=== PATIENT | female | born 1940 | race Caucasian/White ===

== ENCOUNTER 2019-11-26 14:39 | IRF | payer MEDICARE, SELFPAY ==
[2019-11-26 14:45] VITALS: BP 129/56; PULSE 74; RESP 20; TEMP 37.1; O2SAT 98; BMI 27.5
--- NOTE | 2019-11-26 15:16 | ADMGEN ---
This patient, Kirstin Holman, was admitted to [facility] Room 224-01. Patient/family oriented to hospital policies and general routines including ID bracelet, bed and alarms, visiting hours, pain management, procedures, bathroom and other care routines, personal items, smoking policy, room service/diet, and visiting hours. Valuables list has been completed. Information on how to activate the Rapid Response Team has been discussed. Patient/Family are encouraged to report perceived risks to care and to ask questions if they do not understand what they are told or what they should do.
[2019-11-26 15:57] VITALS: BMI 27.5
[2019-11-26 16:54] LABS: Glucose Point of Care 140 (65-105)
[2019-11-26] MEDS: DOCUSATE SODIUM 100 MG CAPSULE PO (17:52)
[2019-11-26] MEDS: metFORMIN HCL 500 MG TABLET PO (17:52)
[2019-11-26] MEDS: ATORVASTATIN 40 MG TABLET 80 MG PO ×2 (20:03→20:04)
[2019-11-26 21:37] VITALS: BP 136/56; PULSE 84; RESP 16; TEMP 36.8; O2SAT 100
[2019-11-27 05:27] LABS: Basophils Absolute Auto 0.1 K/mm3 (0.0-0.1); Basophils Percent Auto 0.5 % (0.2-1.2); Eosinophils Absolute Auto 0.3 K/mm3 (0-0.3); Eosinophils Percent Auto 2.9 % (0-4.4); Hematocrit 34.3 % (37.0-47.0); Hemoglobin 11.5 g/dL (12.0-15.0); Immature Granulocyte Absolute 0.07 K/mm3 (0.00-0.031); Immature Granulocyte Percent A 0.6 % (0-0.5); Lymphocytes Percent Auto 25.9 % (18.3-44.2); Mean Corpuscular HGB Conc 33.5 g/dl (32-36); Mean Corpuscular Volume 92.5 fl (80-100); Mean Platelet Volume 11.2 fl (7.4-10.4); Monocytes Absolute Auto 0.9 K/mm3 (0.1-0.6); Neutrophils Absolute Auto 7.2 K/mm3 (1.3-6.7); Neutrophils Percent Auto 62.1 % (45.5-73.1); Platelet Count Result 326 k/mm3 (150-375); Red Blood Count 3.71 M/mm3 (4.2-5.4); Red Cell Distribution Width 12.3 % (11.5-14.5); White Blood Count 11.6 K/mm3 (4.5-10.0)
[2019-11-27 05:39] LABS: Blood Urea Nitrogen 21 mg/dL (7-17); Calcium 8.7 mg/dL (8.4-10.2); Carbon Dioxide 27 mmol/L (22-30); Chloride 102 mmol/L (98-107); Cholesterol 149 mg/dL (0-200); Estimated CRCL calculation 58 ml/min; Estimated Glomerular Filt Rate > 60; Glucose 143 mg/dL (65-105); HDL Direct 37 mg/dL; Potassium 3.9 mmol/L (3.4-5.0); Sodium 135 mmol/L (137-145); Triglycerides 91 mg/dL (<150)
[2019-11-27 05:41] VITALS: BP 142/58; PULSE 74; RESP 16; TEMP 36.8; O2SAT 100
[2019-11-27 05:41] LABS: Hemoglobin A1C 6.7 % (<5.7)
[2019-11-27 05:50] LABS: LDL Cholesterol Direct 87 mg/dL
[2019-11-27 06:03] LABS: Glucose Point of Care 141 (65-105)
[2019-11-27 09:27] VITALS: PULSE 74
[2019-11-27] MEDS: atenoloL 50 MG TABLET PO (09:27)
[2019-11-27] MEDS: metFORMIN HCL 500 MG TABLET PO ×2 (09:27→17:43)
[2019-11-27] MEDS: ASPIRIN 325 MG TABLET PO (09:27)
[2019-11-27] MEDS: DOCUSATE SODIUM 100 MG CAPSULE PO ×2 (09:28→17:43)
[2019-11-27] MEDS: FLUTICASONE PROPIONATE 0.05% NA SPR 16 GM BTL (*BKC) 1 SPRAY NASAL (09:28)
[2019-11-27] MEDS: hydroCHLOROthiazide 25 MG TABLET PO (09:28)
[2019-11-27] MEDS: LOSARTAN POTASSIUM 50 MG TABLET PO (09:28)
[2019-11-27] MEDS: THERAPEUTIC MULTIVITAMINS/MINERALS TAB (*BKC) 1 TABLET PO (09:29)
[2019-11-27] MEDS: LORATADINE 10 MG TABLET PO (09:29)
--- NOTE | 2019-11-27 12:30 | WPDREHABHP ---
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 The patient is a 79-year-old right-handed woman with a past medical history of hypertension, hyperlipidemia, and diabetes mellitus who presented to [facility] and November 19, 2019 after suffering a fall. She hit her head on the toilet. There was no loss of consciousness. The patient noted that her right arm and leg were weak when she tried to get up. Initial NIHSS was 4. CT of the head showed no acute intracranial process. She was given tPA and transferred to [facility] for further care. CTA of the head and neck showed no LV 0. Patient presented to [facility] with aphasia confusion right arm and right leg weakness. An MRI showed acute infarct of the posterior left frontal lobe and the left LEONIDES A3 segment territory. Neurology was consulted and the patient was not continued on aspirin atorvastatin. Echocardiogram showed an ejection fraction of 62%. CT of the cervical spine showed degenerative joint disease but no fracture. Urinalysis was positive for urinary tract infection and she was placed on a ceftriaxone for 5 day course. On November 20, 2019 the patient's NIHSS score change from 7 to 15, Neurology responded. MRI showed no hemorrhage no new focal deficits people or week will blood glucose within normal limit and fell this decline was likely due to aphasia. Physical examination continues to reveal moderately severe right-sided hemiparesis right-sided neglect right-sided visual field defect impaired balance decreased gross motor conclude decreased safety awareness and expressive aphasia which is not only expressive but also comprehensive. The patient was supposed to have been discharged on subcutaneous heparin for DVT prophylaxis The patient has not traveled outside the [place] in the past 21 days in the patient has not had close personal contact with anyone that has. The patient has not traveled to an area within the [facility] that is experiencing no transformation of the Coronavirus and has not had close personal contact with anyone that has. The patient does not have a fever. The patient is not experiencing any lower respiratory illness symptoms. Therapy was initiated at the acute care facility and the patient transferred to us from [facility] on November 26, 2019 on FALLS OR SURGERIES: The patient has had no major surgeries in the 100 days prior to admission. They had falls in the past year. They had falls with injury in the past year. PAST MEDICAL HISTORY: diabetes mellitus hypercholesterolemia and hypertension PAST SURGICAL HISTORY: appendectomy bunionectomy and D&C SOCIAL HISTORY: patient lives with her in a 1 level home with 2 steps to enter and there is a handrail. The patient has a tub shower with grab bars and the shower chair. There is standard height toilet with synchrony air by. She was independent with ADLs and IADLs less and ambulation with no assistive device. Her spouse is home with her 20/01 and she does have family assistance available. The patient reported no other but falls beside the 1 prior to admission. She has had no major surgery in the past and days never smoker no alcohol or drug abuse FAMILY HISTORY: close family relatives have had hypertension diabetes mellitus and probably heart conditions PRIOR LEVEL OF FUNCTION: Eating was INDEPENDENT Oral Care was INDEPENDENT Toileting Hygiene was INDEPENDENT Shower/Bathing was INDEPENDENT Upper Body Dressing was INDEPENDENT Lower Body Dressing was INDEPENDENT Donning/[place] Footwear was INDEPENDENT Rolling
[2019-11-27 12:59] LABS: Glucose Point of Care 113 (65-105)
[2019-11-27 14:00] VITALS: BP 126/48; PULSE 81; RESP 17; TEMP 36.6; O2SAT 99
[2019-11-27 17:42] LABS: Glucose Point of Care 132 (65-105)
[2019-11-27] MEDS: HEPARIN SODIUM 5,000 UNITS/ML VIAL 5000 UNITS SUB-Q (19:37)
[2019-11-27 20:00] VITALS: BP 124/89; PULSE 60; RESP 16; TEMP 36.6; O2SAT 93
[2019-11-27 21:46] LABS: Glucose Point of Care 108 (65-105)
[2019-11-28] MEDS: HEPARIN SODIUM 5,000 UNITS/ML VIAL 5000 UNITS SUB-Q ×3 (05:42→19:40)
[2019-11-28 06:00] VITALS: BP 153/72; PULSE 86; RESP 20; TEMP 37.2; O2SAT 93
[2019-11-28 07:00] LABS: Glucose Point of Care 134 (65-105)
[2019-11-28 09:16] VITALS: PULSE 86
[2019-11-28] MEDS: metFORMIN HCL 500 MG TABLET PO ×2 (09:16→17:25)
[2019-11-28] MEDS: ASPIRIN 325 MG TABLET PO (09:16)
[2019-11-28] MEDS: THERAPEUTIC MULTIVITAMINS/MINERALS TAB (*BKC) 1 TABLET PO (09:16)
[2019-11-28] MEDS: hydroCHLOROthiazide 25 MG TABLET PO (09:16)
[2019-11-28] MEDS: DOCUSATE SODIUM 100 MG CAPSULE PO ×2 (09:16→17:25)
[2019-11-28] MEDS: atenoloL 50 MG TABLET PO (09:16)
[2019-11-28] MEDS: FLUTICASONE PROPIONATE 0.05% NA SPR 16 GM BTL (*BKC) 1 SPRAY NASAL (09:17)
[2019-11-28] MEDS: LOSARTAN POTASSIUM 50 MG TABLET PO (09:17)
[2019-11-28] MEDS: LORATADINE 10 MG TABLET PO (09:17)
[2019-11-28 12:50] LABS: Glucose Point of Care 114 (65-105)
[2019-11-28 14:00] VITALS: BP 128/53; PULSE 86; RESP 20; TEMP 36.9; O2SAT 96
--- NOTE | 2019-11-28 14:33 | PCPTNOTE ---
Patient family members ( Devin, daughter Tatianna) called this date wanting an update on patient about progress. Educated on stroke rehab and current goals set up for the patient and how her first few sessions have gone. Patient family members were asking about having a mental health counselor come in to help motivate patient due to visitor restrictions stating unsure at this time. Family mentioned Kirstin having a hard time working TV remote and was wondering if therapy could assist with teaching, notified OT staff. Family phone number is [phone] stated due to visitor restrictions would appreciate updates from nursing and/or therapy each week.
[2019-11-28 17:18] LABS: Glucose Point of Care 133 (65-105)
--- NOTE | 2019-11-28 18:19 | WPDNEURORHBP ---
Subjective Date/time seen: 11/28/19 18:19 Interval history: this 79-year-old woman is here with the left hemispheric stroke which has left her with the aphasia which is mixed and right-sided hemiparesis she is pleasant a cheerful is smiling with obvious is speech defect and both expressive and also comprehensive right-sided hemiparesis is stable as best I can see the patient is not any distress does not have any headache nausea vomiting chest pain shortness of breath fever chills or sore throat Review of Systems Review of Systems: All systems reviewed & are unremarkable except as noted in HPI and below Functional Status Transfers Ability Ability to Transfer In/Out of Chair: Maximum Assistance X 1 Exam Const: General: comfortable and no acute distress HENMT: General nose exam: Normal nares present Mouth: Yes moist mucous membranes Eyes: General: appearance normal, both eyes and all related structures Neck: Neck: supple and no JVD Resp: Effort & Inspection: normal respiratory effort Auscultation: clear to auscultation bilaterally Cardio: Rate: regular rate Rhythm: regular rhythm GI: GI Palp: Yes Soft to palpation Auscultation: normal bowel sounds Skin: General skin exam: normal color and no rashes or lesions noted Neuro: Other: patient is awake and alert partially oriented with aphasia and right-sided hemiparesis pleasant cheerful and smiled Extrem: General: normal to inspection Psych: Mental Status: mental status grossly normal Objective Data Vital Signs Vital Signs: Vital Signs - 24 hr 11/27/19 20:00 11/28/19 06:00 11/28/19 09:16 Temperature 36.6 C 37.2 C Pulse Rate 60 86 86 Respiratory Rate 16 20 Blood Pressure 124/89 153/72 H Pulse Oximetry 93 93 11/28/19 14:00 Temperature 36.9 C Pulse Rate 86 Respiratory Rate 20 Blood Pressure 128/53 L Pulse Oximetry 96 Intake/Output Intake/Output: Intake & Output 11/25/19 11/26/19 11/27/19 11/28/19 23:59 23:59 23:59 23:59 Intake Total 480 240 Balance 480 240 Meds/Results Medications: Active Medications Generic Name Dose Route Start Last Admin Trade Name Freq PRN Reason Stop Dose Admin Aspirin 325 mg 11/27/19 09:00 11/28/19 09:16 Aspirin PO 325 mg DAILY WALLACE Administration Atenolol 50 mg 11/27/19 09:00 11/28/19 09:16 Tenormin PO 50 mg DAILY WALLACE Administration Atorvastatin Calcium 80 mg 11/26/19 21:00 11/26/19 20:04 Lipitor PO 80 mg HS WALLACE Administration Calcium Carbonate 200 mg 11/27/19 00:17 Tums PO Q6H PRN Indigestion Cyclosporine 1 drop 11/26/19 21:00 11/28/19 09:18 Restasis EACH EYE 1 drop Q12HR WALLACE Administration Dextrose 12.5 gm 11/26/19 14:58 Dextrose 50% Syringe IV PUSH PRN PRN Hypoglycemia Protocol Docusate Sodium 100 mg 11/26/19 17:00 11/28/19 17:25 Colace Capsule PO 100 mg BID WALLACE Administration Fluticasone Propionate 1 spray 11/27/19 09:00 11/28/19 09:17 Flonase 0.05% Nasal [place] NASAL 1 spray DAILY WALLACE Administration Glucagon 1 mg 11/26/19 14:58 Glucagon For Inj IM PRN PRN Hypoglycemia Protocol Glucose 15 gm 11/26/19 14:58 Glutose 15 PO PRN PRN Hypoglycemia Protocol Heparin Sodium (Porcine) 5,000 units 11/27/19 22:00 11/28/19 17:18 Heparin Sodium SUB-Q 5,000 units Q8HR WALLACE Administration Hydrochlorothiazide 25 mg 11/27/19 09:00 11/28/19 09:16 Hydrochlorothiazide PO 25 mg DAILY WALLACE Administration Dextrose 1,000 mls @ 100 mls/hr 11/26/19 14:58 Dextrose 5% 1,000 Ml IVPB PRN PRN Hypoglycemia Protocol Loperamide HCl 2 mg 11/27/19 17:20 Loperamide Hcl PO Q4H PRN Diarrhea Loratadine 10 mg 11/27/19 09:00 11/28/19 09:17 Claritin PO 10 mg DAILY WALLACE Administration Losartan Potassium 50 mg 11/27/19 09:00 11/28/19 09:17 Cozaar PO 50 mg DAILY WALLACE Administration Metformin HCl 500 mg
[2019-11-28] MEDS: ATORVASTATIN 40 MG TABLET 80 MG PO (19:39)
[2019-11-28 21:44] LABS: Glucose Point of Care 115 (65-105)
[2019-11-28 21:51] VITALS: BP 132/53; PULSE 86; RESP 20; TEMP 37.1; O2SAT 95
[2019-11-29 06:00] VITALS: BP 114/87; PULSE 76; RESP 16; TEMP 36.9; O2SAT 94
[2019-11-29] MEDS: HEPARIN SODIUM 5,000 UNITS/ML VIAL 5000 UNITS SUB-Q ×3 (06:05→20:22)
[2019-11-29 06:49] LABS: Glucose Point of Care 128 (65-105)
[2019-11-29 08:53] VITALS: PULSE 76
[2019-11-29] MEDS: metFORMIN HCL 500 MG TABLET PO ×2 (08:53→17:27)
[2019-11-29] MEDS: DOCUSATE SODIUM 100 MG CAPSULE PO (08:53)
[2019-11-29] MEDS: ASPIRIN 325 MG TABLET PO (08:53)
[2019-11-29] MEDS: atenoloL 50 MG TABLET PO (08:53)
[2019-11-29] MEDS: hydroCHLOROthiazide 25 MG TABLET PO (08:54)
[2019-11-29] MEDS: LORATADINE 10 MG TABLET PO (08:54)
[2019-11-29] MEDS: LOSARTAN POTASSIUM 50 MG TABLET PO (08:54)
[2019-11-29] MEDS: THERAPEUTIC MULTIVITAMINS/MINERALS TAB (*BKC) 1 TABLET PO (08:54)
[2019-11-29] MEDS: FLUTICASONE PROPIONATE 0.05% NA SPR 16 GM BTL (*BKC) 1 SPRAY NASAL (08:54)
--- NOTE | 2019-11-29 10:22 | WPDNEURORHBP ---
Subjective Date/time seen: s/p left frontal lobe stroke with hypertension,DM, and [id number]/01/20 10:22 Review of Systems Review of Systems: All systems reviewed & are unremarkable except as noted in HPI and below Functional Status Transfers Ability Ability to Transfer In/Out of Chair: Total Assistance X 2 Exam Const: General: cooperative and comfortable HENMT: Head: normal to inspection General nose exam: No nasal discharge present Face and sinus: normal facial exam Mouth: Yes Normal oral and palatal mucosa present Eyes: General: appearance normal, both eyes and all related structures Neck: Neck: full ROM Resp: Auscultation: clear to auscultation bilaterally Cardio: Jugular venous distension: no JVD Palpation: normal PMI Rate: regular rate Rhythm: regular rhythm Peripheral pulses: Peripheral pulses 2+ throughout GI: Percussion: Yes normal to percussion Auscultation: normal bowel sounds Skin: General skin exam: no rashes or lesions noted Neuro: General: oriented to person Speech: Abnormal speech present (aphasic) Motor exam (neuro): Abnormal motor strength present (right hemiparetic) Psych: Appearance: grossly normal Affect: normal affect Attitude: cooperative Objective Data Vital Signs Vital Signs: Vital Signs - 24 hr 11/28/19 14:00 11/28/19 21:51 11/29/19 06:00 Temperature 36.9 C 37.1 C 36.9 C Pulse Rate 86 86 76 Respiratory Rate 20 20 16 Blood Pressure 128/53 L 132/53 L 114/87 Pulse Oximetry 96 95 94 11/29/19 08:53 Temperature Pulse Rate 76 Respiratory Rate Blood Pressure Pulse Oximetry Intake/Output Intake/Output: Intake & Output 11/26/19 11/27/19 11/28/19 11/29/19 23:59 23:59 23:59 23:59 Intake Total 480 480 0 Balance 480 480 0 Meds/Results Medications: Active Medications Generic Name Dose Route Start Last Admin Trade Name Freq PRN Reason Stop Dose Admin Aspirin 325 mg 11/27/19 09:00 11/29/19 08:53 Aspirin PO 325 mg DAILY WALLACE Administration Atenolol 50 mg 11/27/19 09:00 11/29/19 08:53 Tenormin PO 50 mg DAILY WALLACE Administration Atorvastatin Calcium 80 mg 11/26/19 21:00 11/28/19 19:39 Lipitor PO 80 mg HS WALLACE Administration Calcium Carbonate 200 mg 11/27/19 00:17 Tums PO Q6H PRN Indigestion Cyclosporine 1 drop 11/26/19 21:00 11/29/19 08:53 Restasis EACH EYE 1 drop Q12HR WALLACE Administration Dextrose 12.5 gm 11/26/19 14:58 Dextrose 50% Syringe IV PUSH PRN PRN Hypoglycemia Protocol Docusate Sodium 100 mg 11/26/19 17:00 11/29/19 08:53 Colace Capsule PO 100 mg BID WALLACE Administration Fluticasone Propionate 1 spray 11/27/19 09:00 11/29/19 08:54 Flonase 0.05% Nasal [place] NASAL 1 spray DAILY WALLACE Administration Glucagon 1 mg 11/26/19 14:58 Glucagon For Inj IM PRN PRN Hypoglycemia Protocol Glucose 15 gm 11/26/19 14:58 Glutose 15 PO PRN PRN Hypoglycemia Protocol Heparin Sodium (Porcine) 5,000 units 11/27/19 22:00 11/29/19 06:05 Heparin Sodium SUB-Q 5,000 units Q8HR WALLACE Administration Hydrochlorothiazide 25 mg 11/27/19 09:00 11/29/19 08:54 Hydrochlorothiazide PO 25 mg DAILY WALLACE Administration Dextrose 1,000 mls @ 100 mls/hr 11/26/19 14:58 Dextrose 5% 1,000 Ml IVPB PRN PRN Hypoglycemia Protocol Loperamide HCl 2 mg 11/27/19 17:20 Loperamide Hcl PO Q4H PRN Diarrhea Loratadine 10 mg 11/27/19 09:00 11/29/19 08:54 Claritin PO 10 mg DAILY WALLACE Administration Losartan Potassium 50 mg 11/27/19 09:00 11/29/19 08:54 Cozaar PO 50 mg DAILY WALLACE Administration Metformin HCl 500 mg 11/26/19 17:00 11/29/19 08:53 Glucophage PO 500 mg BIDWM WALLACE Administration Multivitamins/Calcium 1 tablet 11/27/19 09:00 11/29/19 08:54 Therapeutic Multivitamins/Minerals PO 1 tablet DAILY WALLACE Administration Labs Labs: Lab
--- NOTE | 2019-11-29 11:29 | RPD ---
INDIVIDUALIZED PLAN OF CARE FOR Kirstin Holman Brief Synthesis of Pre-Admission Screen, Post-Admission Evaluation and Therapy Evaluations: The patient presents to rehab with an acute infarct of posterior left frontal lobe and left LEONIDES A3 segment territory. Comorbidities include:Hypertension, hypercholesterolemia, expressive aphasia, dysphagia, diabetes mellitus, acute metabolic encephalopathy, urinary tract infection, head contusion, hypocalcemia. The patient needs physician monitoring and treatment of acute metabolic encephalopathy, urinary tract infection, hypocalcemia, hypertension, monitoring for adverse reactions to new medications, and monitoring of infection. The patient requires nursing services for frequent neuro checks,anticoagulation therapy, medication management and education, pressure relief and skin care management, monitoring of labs, bowel and bladder training, diabetes management and education, and fall/safety precautions. Deficits include:ADLs, Balance, Cognition, Endurance, Family Training/Education, Mobility, Pain Management, ROM, Safety, Speech, Strength, Swallowing, Transfers Insole Coverer/Case Management for: Discharge Planning and Patient/Family Counseling Physical Therapy: 5 days per week for 60 minutes. Treatments may include: Therapeutic Exercise, Gait Training, Neuromuscular Re-education, Transfer Training, Community Reintegration, Bed Mobility, Patient/Family Education, Wheelchair Mobility Group Therapy/Concurrent Therapy Rationales: -Improve attention span during functional activities in a distracted environment. -Enhance problem solving and/or adequate judgment skills during functional activities in a distracted environment. -Promote increased safety awareness in a distracted environment to reduce fall risk with functional tasks, transfers, and ambulation to allow a more safe, self-sufficient return to the home environment. -Improve dynamic balance skills to promote safety and independence with functional activities in a distracted environment for maximum gain. Occupational Therapy: 5 days per week for 60 minutes. Treatments may include: Therapeutic Exercise, Therapeutic Activity, Cognitive Training, Self-Care Transfer Training, Community Reintegration, Home Management, Patient/Family Education, Wheelchair Mobility Training, Energy Conservation Training Group Therapy/Concurrent Therapy Rationales: -Allow therapist to observe and teach generalization and carry-over of skills learned in individual therapy. -Enhance problem solving and sequencing skills during therapeutic activities in a distracted environment. -Promote increased safety awareness in a realistic setting to reduce fall risk with functional tasks due to visual and verbal distractions. -Increase functional level with ADLs, ADL transfers and use of adaptive equipment through therapeutic activities with others while promoting safety to allow a more safe, self-sufficient return home. Speech Therapy: 5 days per week for 60 minutes. Treatments may include: Dysphasia Therapy, Speech/Language/Communication Therapy, Cognitive Training, Patient/Family Education Group Therapy/Concurrent Therapy - Rationale: -Allow therapist to observe and teach generalization and carry-over of skills learned in individual therapy. -Improve comprehension skills with complex or abstract ideas through discussion in a realistic setting. -Enhance problem solving skills with complex issues during activities in a distracted environment. -Promote increased memory skills and concentration in a distracted environment for a safe transition home. -Improve attention and focus with language/communication skills in a realistic and supportive therapeutic setting. -Allow for practice of expression of basic needs and ideas through functional activities with others. Medical Prognosis: Good Anticipated Length of Stay: 24 days Rehab Goals: Eating Goal: 06-Independent Oral Hygiene Goal: 05-Setup or Clean Up
[2019-11-29 12:14] LABS: Glucose Point of Care 128 (65-105)
[2019-11-29 14:00] VITALS: BP 133/58; PULSE 81; RESP 16; TEMP 36.6; O2SAT 97
[2019-11-29 14:01] VITALS: BMI 27.5
[2019-11-29 17:28] LABS: Glucose Point of Care 109 (65-105)
[2019-11-29] MEDS: ATORVASTATIN 40 MG TABLET 80 MG PO (20:22)
[2019-11-29 21:34] VITALS: BP 107/48; PULSE 98; RESP 20; TEMP 36.7; O2SAT 93
[2019-11-30] MEDS: HEPARIN SODIUM 5,000 UNITS/ML VIAL 5000 UNITS SUB-Q ×3 (05:52→20:34)
[2019-11-30 06:00] VITALS: BP 128/47; PULSE 80; RESP 16; TEMP 37; O2SAT 97
[2019-11-30 06:16] LABS: Glucose Point of Care 112 (65-105)
[2019-11-30] MEDS: ASPIRIN 325 MG TABLET PO (08:12)
[2019-11-30] MEDS: metFORMIN HCL 500 MG TABLET PO ×2 (08:12→17:00)
[2019-11-30] MEDS: FLUTICASONE PROPIONATE 0.05% NA SPR 16 GM BTL (*BKC) 1 SPRAY NASAL (08:12)
[2019-11-30] MEDS: DOCUSATE SODIUM 100 MG CAPSULE PO ×2 (08:12→16:59)
[2019-11-30 08:13] VITALS: PULSE 96
[2019-11-30] MEDS: LORATADINE 10 MG TABLET PO (08:13)
[2019-11-30] MEDS: hydroCHLOROthiazide 25 MG TABLET PO (08:13)
[2019-11-30] MEDS: THERAPEUTIC MULTIVITAMINS/MINERALS TAB (*BKC) 1 TABLET PO (08:13)
[2019-11-30] MEDS: atenoloL 50 MG TABLET PO (08:13)
[2019-11-30] MEDS: LOSARTAN POTASSIUM 50 MG TABLET PO (08:13)
[2019-11-30 12:27] LABS: Glucose Point of Care 104 (65-105)
--- NOTE | 2019-11-30 13:57 | WPDNEURORHBP ---
Subjective Date/time seen: 11/30/19 13:57 Interval history: this 79-year-old pleasant woman his here because of left hemispheric stroke with aphasia and right-sided hemiparesis she is being followed by speech therapy along with PT and OT the case was discussed with the and the daughter their questions were answered the patient has been followed by the engineering technology instructor for the she seems to be impulsive laughing and difficulty following instructions otherwise quite pleasant She denies any headache nausea vomiting chest pain or shortness of breath Review of Systems Review of Systems: All systems reviewed & are unremarkable except as noted in HPI and below Functional Status Transfers Ability Ability to Transfer In/Out of Chair: Total Assistance X 2 Exam Const: General: comfortable and no acute distress HENMT: General nose exam: Normal nares present Mouth: Yes moist mucous membranes Eyes: General: appearance normal, both eyes and all related structures Neck: Neck: supple and no JVD Resp: Effort & Inspection: normal respiratory effort Auscultation: clear to auscultation bilaterally Cardio: Rate: regular rate Rhythm: regular rhythm GI: GI Palp: Yes Soft to palpation Auscultation: normal bowel sounds Skin: General skin exam: normal color and no rashes or lesions noted Neuro: Other: patient is awake and are only partially oriented with aphasia and right-sided hem Extrem: General: normal to inspection Psych: Affect: normal affect Objective Data Vital Signs Vital Signs: Vital Signs - 24 hr 11/29/19 14:00 11/29/19 21:34 11/30/19 06:00 Temperature 36.6 C 36.7 C 37.0 C Pulse Rate 81 98 80 Respiratory Rate 16 20 16 Blood Pressure 133/58 L 107/48 L 128/47 L Pulse Oximetry 97 93 97 11/30/19 08:13 Temperature Pulse Rate 96 Respiratory Rate Blood Pressure Pulse Oximetry Intake/Output Intake/Output: Intake & Output 11/27/19 11/28/19 11/29/19 11/30/19 23:59 23:59 23:59 23:59 Intake Total 480 480 240 480 Balance 480 480 240 480 Meds/Results Medications: Active Medications Generic Name Dose Route Start Last Admin Trade Name Freq PRN Reason Stop Dose Admin Aspirin 325 mg 11/27/19 09:00 11/30/19 08:12 Aspirin PO 325 mg DAILY WALLACE Administration Atenolol 50 mg 11/27/19 09:00 11/30/19 08:13 Tenormin PO 50 mg DAILY WALLACE Administration Atorvastatin Calcium 80 mg 11/26/19 21:00 11/29/19 20:22 Lipitor PO 80 mg HS WALLACE Administration Calcium Carbonate 200 mg 11/27/19 00:17 Tums PO Q6H PRN Indigestion Cyclosporine 1 drop 11/26/19 21:00 11/30/19 08:12 Restasis EACH EYE 1 drop Q12HR WALLACE Administration Dextrose 12.5 gm 11/26/19 14:58 Dextrose 50% Syringe IV PUSH PRN PRN Hypoglycemia Protocol Docusate Sodium 100 mg 11/26/19 17:00 11/30/19 08:12 Colace Capsule PO 100 mg BID WALLACE Administration Fluticasone Propionate 1 spray 11/27/19 09:00 11/30/19 08:12 Flonase 0.05% Nasal [place] NASAL 1 spray DAILY WALLACE Administration Glucagon 1 mg 11/26/19 14:58 Glucagon For Inj IM PRN PRN Hypoglycemia Protocol Glucose 15 gm 11/26/19 14:58 Glutose 15 PO PRN PRN Hypoglycemia Protocol Heparin Sodium (Porcine) 5,000 units 11/27/19 22:00 11/30/19 05:52 Heparin Sodium SUB-Q 5,000 units Q8HR WALLACE Administration Hydrochlorothiazide 25 mg 11/27/19 09:00 11/30/19 08:13 Hydrochlorothiazide PO 25 mg DAILY WALLACE Administration Dextrose 1,000 mls @ 100 mls/hr 11/26/19 14:58 Dextrose 5% 1,000 Ml IVPB PRN PRN Hypoglycemia Protocol Loperamide HCl 2 mg 11/27/19 17:20 Loperamide Hcl PO Q4H PRN Diarrhea Loratadine 10 mg 11/27/19 09:00 11/30/19 08:13 Claritin PO 10 mg DAILY WALLACE Administration Losartan Potassium 50 mg 11/27/19 09:00 11/30/19 08:13 Cozaar PO 50 mg DAILY WALLACE Administration Metformin
[2019-11-30 14:00] VITALS: BP 107/49; PULSE 82; RESP 20; TEMP 36.4; O2SAT 96
[2019-11-30 14:43] VITALS: BMI 10.0
[2019-11-30 17:27] LABS: Glucose Point of Care 116 (65-105)
[2019-11-30] MEDS: ATORVASTATIN 40 MG TABLET 80 MG PO (20:35)
[2019-11-30 22:00] VITALS: BP 130/57; PULSE 90; RESP 18; TEMP 37.1; O2SAT 94
[2019-12-01] MEDS: HEPARIN SODIUM 5,000 UNITS/ML VIAL 5000 UNITS SUB-Q ×3 (05:33→20:21)
[2019-12-01 06:00] VITALS: BP 114/51; PULSE 78; RESP 18; TEMP 37.1; O2SAT 93
[2019-12-01 06:48] LABS: Glucose Point of Care 123 (65-105)
[2019-12-01 09:00] VITALS: PULSE 78
[2019-12-01] MEDS: atenoloL 50 MG TABLET PO (09:00)
[2019-12-01] MEDS: ASPIRIN 325 MG TABLET PO (09:00)
[2019-12-01] MEDS: hydroCHLOROthiazide 25 MG TABLET PO (09:01)
[2019-12-01] MEDS: FLUTICASONE PROPIONATE 0.05% NA SPR 16 GM BTL (*BKC) 1 SPRAY NASAL (09:01)
[2019-12-01] MEDS: DOCUSATE SODIUM 100 MG CAPSULE PO ×2 (09:01→17:59)
[2019-12-01] MEDS: LOSARTAN POTASSIUM 50 MG TABLET PO (09:01)
[2019-12-01] MEDS: LORATADINE 10 MG TABLET PO (09:01)
[2019-12-01] MEDS: THERAPEUTIC MULTIVITAMINS/MINERALS TAB (*BKC) 1 TABLET PO (09:01)
[2019-12-01] MEDS: metFORMIN HCL 500 MG TABLET PO ×2 (09:02→17:59)
--- NOTE | 2019-12-01 10:20 | WPDNEURORHBP ---
Subjective Date/time seen: 12/01/19 10:20 Interval history: this pleasant 79-year-old woman is here after having had left hemispheric stroke with inappropriate affect laughing and aphasia and moderately severe right-sided hemiparesis overall picture is improving her speech is getting better however the hemiparesis is lagging behind the speech she does not seem to be any distress and denies any headache nausea vomiting chest pain shortness of breath fever chills or sore throat Review of Systems Review of Systems: All systems reviewed & are unremarkable except as noted in HPI and below Functional Status Transfers Ability Ability to Transfer In/Out of Chair: Total Assistance X 2 Exam Const: General: comfortable and no acute distress HENMT: General nose exam: Normal nares present Mouth: Yes moist mucous membranes Eyes: General: appearance normal, both eyes and all related structures Neck: Neck: supple and no JVD Resp: Effort & Inspection: normal respiratory effort Auscultation: clear to auscultation bilaterally Cardio: Rate: regular rate Rhythm: regular rhythm GI: GI Palp: Yes Soft to palpation Auscultation: normal bowel sounds Skin: General skin exam: normal color and no rashes or lesions noted Neuro: Other: patient is awake and alert partially oriented follows commands pleasant laughing inappropriate affect with aphasia and right-sided hemiparesis Extrem: General: normal to inspection Psych: Other: aphasia and inappropriate affect precludes the formal psych exam Objective Data Vital Signs Vital Signs: Vital Signs - 24 hr 11/30/19 14:00 11/30/19 22:00 12/01/19 06:00 Temperature 36.4 C L 37.1 C 37.1 C Pulse Rate 82 90 78 Respiratory Rate 20 18 18 Blood Pressure 107/49 L 130/57 L 114/51 L Pulse Oximetry 96 94 93 12/01/19 09:00 Temperature Pulse Rate 78 Respiratory Rate Blood Pressure Pulse Oximetry Intake/Output Intake/Output: Intake & Output 11/28/19 11/29/19 11/30/19 12/01/19 23:59 23:59 23:59 23:59 Intake Total 480 240 720 240 Balance 480 240 720 240 Meds/Results Medications: Active Medications Generic Name Dose Route Start Last Admin Trade Name Freq PRN Reason Stop Dose Admin Aspirin 325 mg 11/27/19 09:00 12/01/19 09:00 Aspirin PO 325 mg DAILY [facility] Administration Atenolol 50 mg 11/27/19 09:00 12/01/19 09:00 Tenormin PO 50 mg DAILY [facility] Administration Atorvastatin Calcium 80 mg 11/26/19 21:00 11/30/19 20:35 Lipitor PO 80 mg HS [facility] Administration Calcium Carbonate 200 mg 11/27/19 00:17 Tums PO Q6H PRN Indigestion Cyclosporine 1 drop 11/26/19 21:00 12/01/19 09:01 Restasis EACH EYE 1 drop Q12HR [facility] Administration Dextrose 12.5 gm 11/26/19 14:58 Dextrose 50% Syringe IV PUSH PRN PRN Hypoglycemia Protocol Docusate Sodium 100 mg 11/26/19 17:00 12/01/19 09:01 Colace Capsule PO 100 mg BID [facility] Administration Fluticasone Propionate 1 spray 11/27/19 09:00 12/01/19 09:01 Flonase 0.05% Nasal [place] NASAL 1 spray DAILY [facility] Administration Glucagon 1 mg 11/26/19 14:58 Glucagon For Inj IM PRN PRN Hypoglycemia Protocol Glucose 15 gm 11/26/19 14:58 Glutose 15 PO PRN PRN Hypoglycemia Protocol Heparin Sodium (Porcine) 5,000 units 11/27/19 22:00 12/01/19 05:33 Heparin Sodium SUB-Q 5,000 units Q8HR [facility] Administration Hydrochlorothiazide 25 mg 11/27/19 09:00 12/01/19 09:01 Hydrochlorothiazide PO 25 mg DAILY [facility] Administration Dextrose 1,000 mls @ 100 mls/hr 11/26/19 14:58 Dextrose 5% 1,000 Ml IVPB PRN PRN Hypoglycemia Protocol Loperamide HCl 2 mg 11/27/19 17:20 Loperamide Hcl PO Q4H PRN Diarrhea Loratadine 10 mg 11/27/19 09:00 12/01/19 09:01 Claritin PO 10 mg DAILY [facility] Administration Losartan Potassium 50 mg 11/27/19 09:00 12/01/19 09:01 Cozaar PO 50 mg
[2019-12-01 11:56] LABS: Glucose Point of Care 132 (65-105)
[2019-12-01 14:00] VITALS: BP 106/46; PULSE 95; RESP 20; TEMP 36.4; O2SAT 100
[2019-12-01 17:02] LABS: Glucose Point of Care 113 (65-105)
[2019-12-01] MEDS: ATORVASTATIN 40 MG TABLET 80 MG PO (20:21)
[2019-12-01 22:00] VITALS: BP 140/54; PULSE 86; RESP 20; TEMP 36.5; O2SAT 93
[2019-12-02] MEDS: HEPARIN SODIUM 5,000 UNITS/ML VIAL 5000 UNITS SUB-Q ×3 (05:42→20:16)
[2019-12-02 06:00] VITALS: BP 111/48; PULSE 69; RESP 18; TEMP 36.5; O2SAT 95
[2019-12-02 06:37] LABS: Glucose Point of Care 118 (65-105)
[2019-12-02 08:44] VITALS: PULSE 69
[2019-12-02] MEDS: metFORMIN HCL 500 MG TABLET PO ×2 (08:44→17:08)
[2019-12-02] MEDS: ASPIRIN 325 MG TABLET PO (08:44)
[2019-12-02] MEDS: atenoloL 50 MG TABLET PO (08:44)
[2019-12-02] MEDS: FLUTICASONE PROPIONATE 0.05% NA SPR 16 GM BTL (*BKC) 1 SPRAY NASAL (08:45)
[2019-12-02] MEDS: DOCUSATE SODIUM 100 MG CAPSULE PO ×2 (08:45→17:08)
[2019-12-02] MEDS: LORATADINE 10 MG TABLET PO (08:45)
[2019-12-02] MEDS: hydroCHLOROthiazide 25 MG TABLET PO (08:45)
[2019-12-02] MEDS: THERAPEUTIC MULTIVITAMINS/MINERALS TAB (*BKC) 1 TABLET PO (08:45)
[2019-12-02] MEDS: LOSARTAN POTASSIUM 50 MG TABLET PO (08:45)
[2019-12-02 12:22] LABS: Glucose Point of Care 109 (65-105)
[2019-12-02 14:00] VITALS: BP 98/60; PULSE 86; RESP 16; TEMP 36.9; O2SAT 95
[2019-12-02 17:03] LABS: Glucose Point of Care 110 (65-105)
[2019-12-02] MEDS: ATORVASTATIN 40 MG TABLET 80 MG PO (20:15)
[2019-12-02 22:00] VITALS: BP 101/67; PULSE 81; RESP 18; TEMP 36.4; O2SAT 97
[2019-12-03] MEDS: HEPARIN SODIUM 5,000 UNITS/ML VIAL 5000 UNITS SUB-Q ×3 (05:49→20:13)
[2019-12-03 06:00] VITALS: BP 120/51; PULSE 83; RESP 16; TEMP 37.2; O2SAT 98
[2019-12-03 06:43] LABS: Glucose Point of Care 121 (65-105)
[2019-12-03 09:17] VITALS: PULSE 83
[2019-12-03] MEDS: THERAPEUTIC MULTIVITAMINS/MINERALS TAB (*BKC) 1 TABLET PO (09:17)
[2019-12-03] MEDS: hydroCHLOROthiazide 25 MG TABLET PO (09:17)
[2019-12-03] MEDS: FLUTICASONE PROPIONATE 0.05% NA SPR 16 GM BTL (*BKC) 1 SPRAY NASAL (09:17)
[2019-12-03] MEDS: atenoloL 50 MG TABLET PO (09:17)
[2019-12-03] MEDS: LORATADINE 10 MG TABLET PO (09:17)
[2019-12-03] MEDS: metFORMIN HCL 500 MG TABLET PO ×2 (09:17→17:48)
[2019-12-03] MEDS: DOCUSATE SODIUM 100 MG CAPSULE PO ×2 (09:17→17:48)
[2019-12-03] MEDS: LOSARTAN POTASSIUM 50 MG TABLET PO (09:17)
[2019-12-03] MEDS: ASPIRIN 325 MG TABLET PO (09:17)
[2019-12-03 12:11] LABS: Glucose Point of Care 117 (65-105)
--- NOTE | 2019-12-03 12:50 | PCDIET ---
Nutrition Follow-Up Complete: Nutrition Diagnosis: Inadequate oral intake related to CVA as evidenced by poor po intake reported. Nutrition Goal: Intake of at least 50% of meals/supplements Goal met. Average intake since last review is 75% of meals on diabetic, soft and bite size diet. Patient states she does not care for Glucerna and would like to try alternative supplement. Recommend Ensure Compact (220kcal, 9g protein) for lower carbohydrate content. Last recorded weight is 68.2 kg. Recommend obtaining new weight. Bowel Motility: +BM today. Labs Reviewed: Glu (121) Meds Noted: Colace, Lipitor, Glucophage, MVI, Hydrochlorothiazide Additional Notes: No documented skin breakdown. Nutrition Monitoring and Evaluation: Follow up in 7 days.
[2019-12-03 14:00] VITALS: BP 108/49; PULSE 79; RESP 19; TEMP 36.6; O2SAT 94
--- NOTE | 2019-12-03 14:03 | WPDNEURORHBP ---
Subjective Date/time seen: 12/02/19 14:03 Interval history: this pleasant 79-year-old woman is here after having had the left hemispheric stroke which has left her with slowly improving aphasia and right-sided moderately severe hemiparesis she is doing fairly well denies any headache nausea vomiting chest pain shortness of breath fever chills or sore throat Review of Systems Review of Systems: All systems reviewed & are unremarkable except as noted in HPI and below Functional Status Transfers Ability Ability to Transfer In/Out of Chair: Total Assistance X 2 Exam Const: General: comfortable and no acute distress HENMT: General nose exam: Normal nares present Mouth: Yes moist mucous membranes Eyes: General: appearance normal, both eyes and all related structures Neck: Neck: supple and no JVD Resp: Effort & Inspection: normal respiratory effort Auscultation: clear to auscultation bilaterally Cardio: Rate: regular rate Rhythm: regular rhythm GI: GI Palp: Yes Soft to palpation Auscultation: normal bowel sounds Skin: General skin exam: normal color and no rashes or lesions noted Neuro: Other: patient's aphasia is improving and she is doing fairly well right-sided weakness is lagging behind improvement in her speech defect Extrem: General: normal to inspection Psych: Mental Status: mental status grossly normal Objective Data Vital Signs Vital Signs: Vital Signs - 24 hr 12/02/19 22:00 12/03/19 06:00 12/03/19 09:17 Temperature 36.4 C 37.2 C Pulse Rate 81 83 83 Respiratory Rate 18 16 Blood Pressure 101/67 120/51 L Pulse Oximetry 97 98 Intake/Output Intake/Output: Intake & Output 11/30/19 12/01/19 12/02/19 12/03/19 23:59 23:59 23:59 23:59 Intake Total 736 730 2986 240 Balance 807 577 0908 240 Meds/Results Medications: Active Medications Generic Name Dose Route Start Last Admin Trade Name Freq PRN Reason Stop Dose Admin Aspirin 325 mg 11/27/19 09:00 12/03/19 09:17 Aspirin PO 325 mg DAILY [facility] Administration Atenolol 50 mg 11/27/19 09:00 12/03/19 09:17 Tenormin PO 50 mg DAILY [facility] Administration Atorvastatin Calcium 80 mg 11/26/19 21:00 12/02/19 20:15 Lipitor PO 80 mg HS [facility] Administration Calcium Carbonate 200 mg 11/27/19 00:17 Tums PO Q6H PRN Indigestion Cyclosporine 1 drop 11/26/19 21:00 12/03/19 09:17 Restasis EACH EYE 1 drop Q12HR [facility] Administration Dextrose 12.5 gm 11/26/19 14:58 Dextrose 50% Syringe IV PUSH PRN PRN Hypoglycemia Protocol Docusate Sodium 100 mg 11/26/19 17:00 12/03/19 09:17 Colace Capsule PO 100 mg BID [facility] Administration Fluticasone Propionate 1 spray 11/27/19 09:00 12/03/19 09:17 Flonase 0.05% Nasal [place] NASAL 1 spray DAILY [facility] Administration Glucagon 1 mg 11/26/19 14:58 Glucagon For Inj IM PRN PRN Hypoglycemia Protocol Glucose 15 gm 11/26/19 14:58 Glutose 15 PO PRN PRN Hypoglycemia Protocol Heparin Sodium (Porcine) 5,000 units 11/27/19 22:00 12/03/19 05:49 Heparin Sodium SUB-Q 5,000 units Q8HR [facility] Administration Hydrochlorothiazide 25 mg 11/27/19 09:00 12/03/19 09:17 Hydrochlorothiazide PO 25 mg DAILY [facility] Administration Dextrose 1,000 mls @ 100 mls/hr 11/26/19 14:58 Dextrose 5% 1,000 Ml IVPB PRN PRN Hypoglycemia Protocol Loperamide HCl 2 mg 11/27/19 17:20 Loperamide Hcl PO Q4H PRN Diarrhea Loratadine 10 mg 11/27/19 09:00 12/03/19 09:17 Claritin PO 10 mg DAILY [facility] Administration Losartan Potassium 50 mg 11/27/19 09:00 12/03/19 09:17 Cozaar PO 50 mg DAILY [facility] Administration Metformin HCl 500 mg 11/26/19 17:00 12/03/19 09:17 Glucophage PO 500 mg BIDWM [facility] Administration Multivitamins/Calcium 1 tablet 11/27/19 09:00 12/03/19 09:17 Therapeutic Multivitamins/Minerals PO 1 tablet DAILY W[facility]ACE Administra
--- NOTE | 2019-12-03 15:52 | WPDNEURORHBP ---
Subjective Date/time seen: 12/03/19 15:52 Interval history: this patient is here after having had a left hemispheric stroke with aphasia and right-sided significant hemiparesis her aphasia is improving slowly she is able to communicate much better than when she came in she denies any headache nausea vomiting chest pain shortness of breath fever chills sore throat Review of Systems Review of Systems: All systems reviewed & are unremarkable except as noted in HPI and below Functional Status Transfers Ability Ability to Transfer In/Out of Chair: Total Assistance X 2 Exam Const: General: comfortable and no acute distress HENMT: General nose exam: Normal nares present Mouth: Yes moist mucous membranes Eyes: General: appearance normal, both eyes and all related structures Neck: Neck: supple and no JVD Resp: Effort & Inspection: normal respiratory effort Auscultation: clear to auscultation bilaterally Cardio: Rate: regular rate Rhythm: regular rhythm GI: GI Palp: Yes Soft to palpation Auscultation: normal bowel sounds Skin: General skin exam: normal color and no rashes or lesions noted Neuro: Other: patient's aphasia is improving likewise the hemiparesis is also improved Extrem: General: normal to inspection Psych: Mental Status: mental status grossly normal Other: with limitation of the aphasia Objective Data Vital Signs Vital Signs: Vital Signs - 24 hr 12/02/19 22:00 12/03/19 06:00 12/03/19 09:17 Temperature 36.4 C 37.2 C Pulse Rate 81 83 83 Respiratory Rate 18 16 Blood Pressure 101/67 120/51 L Pulse Oximetry 97 98 12/03/19 14:00 Temperature 36.6 C Pulse Rate 79 Respiratory Rate 19 Blood Pressure 108/49 L Pulse Oximetry 94 Intake/Output Intake/Output: Intake & Output 11/30/19 12/01/19 12/02/19 12/03/19 23:59 23:59 23:59 23:59 Intake Total 230 208 1283 540 Balance 370 319 8997 540 Meds/Results Medications: Active Medications Generic Name Dose Route Start Last Admin Trade Name Freq PRN Reason Stop Dose Admin Aspirin 325 mg 11/27/19 09:00 12/03/19 09:17 Aspirin PO 325 mg DAILY [facility] Administration Atenolol 50 mg 11/27/19 09:00 12/03/19 09:17 Tenormin PO 50 mg DAILY [facility] Administration Atorvastatin Calcium 80 mg 11/26/19 21:00 12/02/19 20:15 Lipitor PO 80 mg HS [facility] Administration Calcium Carbonate 200 mg 11/27/19 00:17 Tums PO Q6H PRN Indigestion Cyclosporine 1 drop 11/26/19 21:00 12/03/19 09:17 Restasis EACH EYE 1 drop Q12HR [facility] Administration Dextrose 12.5 gm 11/26/19 14:58 Dextrose 50% Syringe IV PUSH PRN PRN Hypoglycemia Protocol Docusate Sodium 100 mg 11/26/19 17:00 12/03/19 09:17 Colace Capsule PO 100 mg BID [facility] Administration Fluticasone Propionate 1 spray 11/27/19 09:00 12/03/19 09:17 Flonase 0.05% Nasal [place] NASAL 1 spray DAILY [facility] Administration Glucagon 1 mg 11/26/19 14:58 Glucagon For Inj IM PRN PRN Hypoglycemia Protocol Glucose 15 gm 11/26/19 14:58 Glutose 15 PO PRN PRN Hypoglycemia Protocol Heparin Sodium (Porcine) 5,000 units 11/27/19 22:00 12/03/19 14:13 Heparin Sodium SUB-Q 5,000 units Q8HR [facility] Administration Hydrochlorothiazide 25 mg 11/27/19 09:00 12/03/19 09:17 Hydrochlorothiazide PO 25 mg DAILY [facility] Administration Dextrose 1,000 mls @ 100 mls/hr 11/26/19 14:58 Dextrose 5% 1,000 Ml IVPB PRN PRN Hypoglycemia Protocol Loperamide HCl 2 mg 11/27/19 17:20 Loperamide Hcl PO Q4H PRN Diarrhea Loratadine 10 mg 11/27/19 09:00 12/03/19 09:17 Claritin PO 10 mg DAILY [facility] Administration Losartan Potassium 50 mg 11/27/19 09:00 12/03/19 09:17 Cozaar PO 50 mg DAILY [facility] Administration Metformin HCl 500 mg 11/26/19 17:00 12/03/19 09:17 Glucophage PO 500 mg BIDWM [facility] Administration Multivitamins/Calcium 1 tablet 05
[2019-12-03 17:42] LABS: Glucose Point of Care 117 (65-105)
[2019-12-03] MEDS: ATORVASTATIN 40 MG TABLET 80 MG PO (20:13)
[2019-12-03 22:00] VITALS: BP 104/55; PULSE 78; RESP 16; TEMP 37.1; O2SAT 96
[2019-12-04 04:51] LABS: Basophils Absolute Auto 0.1 K/mm3 (0.0-0.1); Basophils Percent Auto 0.6 % (0.2-1.2); Eosinophils Absolute Auto 0.3 K/mm3 (0-0.3); Eosinophils Percent Auto 3.9 % (0-4.4); Hematocrit 36.6 % (37.0-47.0); Hemoglobin 12.2 g/dL (12.0-15.0); Immature Granulocyte Absolute 0.03 K/mm3 (0.00-0.031); Immature Granulocyte Percent A 0.4 % (0-0.5); Lymphocytes Percent Auto 33.6 % (18.3-44.2); Mean Corpuscular HGB Conc 33.3 g/dl (32-36); Mean Corpuscular Hemoglobin 30.4 pg (26-34); Mean Corpuscular Volume 91.3 fl (80-100); Mean Platelet Volume 10.8 fl (7.4-10.4); Monocytes Absolute Auto 0.5 K/mm3 (0.1-0.6); Monocytes Percent Auto 6.9 % (2.6-8.5); Neutrophils Absolute Auto 4.2 K/mm3 (1.3-6.7); Neutrophils Percent Auto 54.6 % (45.5-73.1); Platelet Count Result 341 k/mm3 (150-375); Red Blood Count 4.01 M/mm3 (4.2-5.4); Red Cell Distribution Width 12.5 % (11.5-14.5); White Blood Count 7.7 K/mm3 (4.5-10.0)
[2019-12-04 04:55] LABS: Blood Urea Nitrogen 33 mg/dL (7-17); Calcium 9.5 mg/dL (8.4-10.2); Carbon Dioxide 26 mmol/L (22-30); Chloride 100 mmol/L (98-107); Estimated CRCL calculation 44 ml/min; Estimated Glomerular Filt Rate > 60; Glucose 109 mg/dL (65-105); Potassium 3.8 mmol/L (3.4-5.0); Sodium 132 mmol/L (137-145)
[2019-12-04] MEDS: HEPARIN SODIUM 5,000 UNITS/ML VIAL 5000 UNITS SUB-Q ×3 (05:49→20:55)
[2019-12-04 06:00] VITALS: BP 117/71; PULSE 99; RESP 20; TEMP 37.2; O2SAT 94
[2019-12-04 06:16] LABS: Glucose Point of Care 121 (65-105)
[2019-12-04 08:46] VITALS: PULSE 99
[2019-12-04] MEDS: metFORMIN HCL 500 MG TABLET PO ×2 (08:46→17:01)
[2019-12-04] MEDS: LOSARTAN POTASSIUM 50 MG TABLET PO (08:46)
[2019-12-04] MEDS: DOCUSATE SODIUM 100 MG CAPSULE PO ×2 (08:46→17:01)
[2019-12-04] MEDS: atenoloL 50 MG TABLET PO (08:46)
[2019-12-04] MEDS: hydroCHLOROthiazide 25 MG TABLET PO (08:46)
[2019-12-04] MEDS: ASPIRIN 325 MG TABLET PO (08:46)
[2019-12-04] MEDS: LORATADINE 10 MG TABLET PO (08:46)
[2019-12-04] MEDS: THERAPEUTIC MULTIVITAMINS/MINERALS TAB (*BKC) 1 TABLET PO (08:46)
[2019-12-04] MEDS: FLUTICASONE PROPIONATE 0.05% NA SPR 16 GM BTL (*BKC) 1 SPRAY NASAL (08:47)
[2019-12-04 10:51] VITALS: PULSE 99; RESP 20; O2SAT 94
[2019-12-04 14:00] VITALS: BP 112/58; PULSE 76; RESP 16; TEMP 36.3; O2SAT 99
[2019-12-04 16:53] LABS: Glucose Point of Care 95 (65-105)
[2019-12-04] MEDS: ATORVASTATIN 40 MG TABLET 80 MG PO (20:55)
[2019-12-04 22:00] VITALS: BP 132/50; PULSE 80; RESP 18; TEMP 37.1; O2SAT 96
[2019-12-05] MEDS: HEPARIN SODIUM 5,000 UNITS/ML VIAL 5000 UNITS SUB-Q ×3 (05:52→20:43)
[2019-12-05 06:00] VITALS: BP 110/84; PULSE 95; RESP 18; TEMP 36.8; O2SAT 99
[2019-12-05 06:53] LABS: Glucose Point of Care 121 (65-105)
[2019-12-05 10:20] VITALS: PULSE 95
[2019-12-05] MEDS: metFORMIN HCL 500 MG TABLET PO ×2 (10:20→17:20)
[2019-12-05] MEDS: atenoloL 50 MG TABLET PO (10:20)
[2019-12-05] MEDS: ASPIRIN 325 MG TABLET PO (10:20)
[2019-12-05] MEDS: THERAPEUTIC MULTIVITAMINS/MINERALS TAB (*BKC) 1 TABLET PO (10:21)
[2019-12-05] MEDS: DOCUSATE SODIUM 100 MG CAPSULE PO ×2 (10:21→17:20)
[2019-12-05] MEDS: LOSARTAN POTASSIUM 50 MG TABLET PO (10:21)
[2019-12-05] MEDS: FLUTICASONE PROPIONATE 0.05% NA SPR 16 GM BTL (*BKC) 1 SPRAY NASAL (10:21)
[2019-12-05] MEDS: hydroCHLOROthiazide 25 MG TABLET PO (10:21)
[2019-12-05] MEDS: LORATADINE 10 MG TABLET PO (10:21)
--- NOTE | 2019-12-05 11:48 | WPDNEURORHBP ---
Subjective Date/time seen: 12/05/19 11:48 right hemiparesis with aphasia Review of Systems Review of Systems: All systems reviewed & are unremarkable except as noted in HPI and below Functional Status Transfers Ability Ability to Transfer In/Out of Chair: Total Assistance X 2 Exam Const: General: cooperative, healthy appearing, comfortable and no acute distress HENMT: Head: normal to inspection Eyes: General: appearance normal, both eyes and all related structures Neck: Neck: full ROM Resp: Effort & Inspection: normal respiratory effort Auscultation: clear to auscultation bilaterally Cardio: Rate: regular rate Rhythm: regular rhythm GI: Auscultation: normal bowel sounds Skin: General skin exam: no rashes or lesions noted Neuro: General: patient oriented x3 Motor exam (neuro): Abnormal motor strength present Psych: Appearance: grossly normal Objective Data Vital Signs Vital Signs: Vital Signs - 24 hr 12/04/19 14:00 12/04/19 22:00 12/05/19 06:00 Temperature 36.3 C L 37.1 C 36.8 C Pulse Rate 76 80 95 Respiratory Rate 16 18 18 Blood Pressure 112/58 L 132/50 L 110/84 Pulse Oximetry 99 96 99 12/05/19 10:20 Temperature Pulse Rate 95 Respiratory Rate Blood Pressure Pulse Oximetry Intake/Output Intake/Output: Intake & Output 12/02/19 12/03/19 12/04/19 12/05/19 23:59 23:59 23:59 23:59 Intake Total 1040 780 760 200 Balance 1040 780 760 200 Meds/Results Medications: Active Medications Generic Name Dose Route Start Last Admin Trade Name Freq PRN Reason Stop Dose Admin Aspirin 325 mg 11/27/19 09:00 12/05/19 10:20 Aspirin PO 325 mg DAILY [facility] Administration Atenolol 50 mg 11/27/19 09:00 12/05/19 10:20 Tenormin PO 50 mg DAILY [facility] Administration Atorvastatin Calcium 80 mg 11/26/19 21:00 12/04/19 20:55 Lipitor PO 80 mg HS [facility] Administration Calcium Carbonate 200 mg 11/27/19 00:17 Tums PO Q6H PRN Indigestion Cyclosporine 1 drop 11/26/19 21:00 12/05/19 10:21 Restasis EACH EYE 1 drop Q12HR [facility] Administration Dextrose 12.5 gm 11/26/19 14:58 Dextrose 50% Syringe IV PUSH PRN PRN Hypoglycemia Protocol Docusate Sodium 100 mg 11/26/19 17:00 12/05/19 10:21 Colace Capsule PO 100 mg BID [facility] Administration Fluticasone Propionate 1 spray 11/27/19 09:00 12/05/19 10:21 Flonase 0.05% Nasal [place] NASAL 1 spray DAILY [facility] Administration Glucagon 1 mg 11/26/19 14:58 Glucagon For Inj IM PRN PRN Hypoglycemia Protocol Glucose 15 gm 11/26/19 14:58 Glutose 15 PO PRN PRN Hypoglycemia Protocol Heparin Sodium (Porcine) 5,000 units 11/27/19 22:00 12/05/19 05:52 Heparin Sodium SUB-Q 5,000 units Q8HR [facility] Administration Hydrochlorothiazide 25 mg 11/27/19 09:00 12/05/19 10:21 Hydrochlorothiazide PO 25 mg DAILY [facility] Administration Dextrose 1,000 mls @ 100 mls/hr 11/26/19 14:58 Dextrose 5% 1,000 Ml IVPB PRN PRN Hypoglycemia Protocol Loperamide HCl 2 mg 11/27/19 17:20 Loperamide Hcl PO Q4H PRN Diarrhea Loratadine 10 mg 11/27/19 09:00 12/05/19 10:21 Claritin PO 10 mg DAILY [facility] Administration Losartan Potassium 50 mg 11/27/19 09:00 12/05/19 10:21 Cozaar PO 50 mg DAILY [facility] Administration Metformin HCl 500 mg 11/26/19 17:00 12/05/19 10:20 Glucophage PO 500 mg BIDWM [facility] Administration Multivitamins/Calcium 1 tablet 11/27/19 09:00 12/05/19 10:21 Therapeutic Multivitamins/Minerals PO 1 tablet DAILY [facility] Administration Labs Labs: Laboratory Results - last 24 hr 12/04/19 12/05/19 16:48 06:15 POC Capillary Glucose 95 121 H Progress Note: A&P Assessment and Plan (1) Hemiparesis of right dominant side due to cerebrovascular disease: Code(s): I67.9 - Cerebrovascular disease, unspecified; G81.91 - Hemiplegia, unspecified affecting right d
[2019-12-05 14:00] VITALS: BP 129/60; PULSE 84; RESP 20; TEMP 36.9; O2SAT 98
[2019-12-05 17:19] LABS: Glucose Point of Care 120 (65-105)
[2019-12-05] MEDS: ATORVASTATIN 40 MG TABLET 80 MG PO (20:44)
[2019-12-05 22:00] VITALS: BP 122/50; PULSE 89; RESP 18; TEMP 36.2; O2SAT 95
[2019-12-06] MEDS: HEPARIN SODIUM 5,000 UNITS/ML VIAL 5000 UNITS SUB-Q ×3 (05:35→20:11)
[2019-12-06 06:00] VITALS: BP 136/50; PULSE 85; RESP 17; TEMP 36.6; O2SAT 100
[2019-12-06 06:54] LABS: Glucose Point of Care 121 (65-105)
[2019-12-06 08:28] VITALS: PULSE 84
[2019-12-06] MEDS: FLUTICASONE PROPIONATE 0.05% NA SPR 16 GM BTL (*BKC) 1 SPRAY NASAL (08:28)
[2019-12-06] MEDS: atenoloL 50 MG TABLET PO (08:28)
[2019-12-06] MEDS: DOCUSATE SODIUM 100 MG CAPSULE PO ×2 (08:28→17:10)
[2019-12-06] MEDS: ASPIRIN 325 MG TABLET PO (08:28)
[2019-12-06] MEDS: metFORMIN HCL 500 MG TABLET PO ×2 (08:28→17:10)
[2019-12-06] MEDS: THERAPEUTIC MULTIVITAMINS/MINERALS TAB (*BKC) 1 TABLET PO (08:29)
[2019-12-06] MEDS: hydroCHLOROthiazide 25 MG TABLET PO (08:29)
[2019-12-06] MEDS: LORATADINE 10 MG TABLET PO (08:29)
[2019-12-06] MEDS: LOSARTAN POTASSIUM 50 MG TABLET PO (08:29)
[2019-12-06 08:40] VITALS: PULSE 82; RESP 18
[2019-12-06 14:00] VITALS: BP 110/43; PULSE 81; RESP 20; TEMP 37.1; O2SAT 96
[2019-12-06] MEDS: ATORVASTATIN 40 MG TABLET 80 MG PO (20:10)
[2019-12-06 22:00] VITALS: BP 124/43; PULSE 84; RESP 18; TEMP 37.3; O2SAT 96
[2019-12-07 01:05] LABS: Glucose Point of Care 111 (65-105)
[2019-12-07 06:00] VITALS: BP 119/41; PULSE 68; RESP 16; TEMP 36.8; O2SAT 91
[2019-12-07] MEDS: HEPARIN SODIUM 5,000 UNITS/ML VIAL 5000 UNITS SUB-Q ×3 (06:20→22:37)
[2019-12-07 07:03] LABS: Glucose Point of Care 145 (65-105)
[2019-12-07 08:00] VITALS: PULSE 68; RESP 16; O2SAT 91
[2019-12-07 08:22] VITALS: PULSE 68
[2019-12-07] MEDS: atenoloL 50 MG TABLET PO (08:22)
[2019-12-07] MEDS: DOCUSATE SODIUM 100 MG CAPSULE PO ×2 (08:22→17:18)
[2019-12-07] MEDS: ASPIRIN 325 MG TABLET PO (08:22)
[2019-12-07] MEDS: THERAPEUTIC MULTIVITAMINS/MINERALS TAB (*BKC) 1 TABLET PO (08:22)
[2019-12-07] MEDS: LORATADINE 10 MG TABLET PO (08:23)
[2019-12-07] MEDS: FLUTICASONE PROPIONATE 0.05% NA SPR 16 GM BTL (*BKC) 1 SPRAY NASAL (08:23)
[2019-12-07] MEDS: hydroCHLOROthiazide 25 MG TABLET PO (08:23)
[2019-12-07] MEDS: metFORMIN HCL 500 MG TABLET PO ×2 (08:23→17:19)
[2019-12-07] MEDS: LOSARTAN POTASSIUM 50 MG TABLET PO (08:23)
[2019-12-07 14:00] VITALS: BP 106/48; PULSE 87; RESP 17; TEMP 36.4; O2SAT 100
--- NOTE | 2019-12-07 14:42 | WPDNEURORHBP ---
Subjective Date/time seen: 12/07/19 14:42 Interval history: this 79-year-old woman is here after having had a left hemispheric stroke which has left her with the aphasia and right-sided hemiparesis she has some movement in her right hand otherwise the hemiparesis is moderate to moderately severe and she is needing assistance all the activities of daily living but she is improving on the other hand and she is able to engage in therapy fairly well as for the speech is concerned Review of Systems Review of Systems: All systems reviewed & are unremarkable except as noted in HPI and below Functional Status Transfers Ability Ability to Transfer In/Out of Chair: Total Assistance X 2 Exam Const: General: comfortable and no acute distress HENMT: General nose exam: Normal nares present Mouth: Yes moist mucous membranes Eyes: General: appearance normal, both eyes and all related structures Neck: Neck: supple and no JVD Resp: Effort & Inspection: normal respiratory effort Auscultation: clear to auscultation bilaterally Cardio: Rate: regular rate Rhythm: regular rhythm GI: GI Palp: Yes Soft to palpation Auscultation: normal bowel sounds Skin: General skin exam: normal color and no rashes or lesions noted Neuro: Other: patient is awake and alert partially oriented aphasia is in and the hemiparesis is very slow improving Extrem: General: normal to inspection Psych: Mental Status: mental status grossly normal Objective Data Vital Signs Vital Signs: Vital Signs - 24 hr 12/06/19 22:00 12/07/19 06:00 12/07/19 08:00 Temperature 37.3 C 36.8 C Pulse Rate 84 68 68 Respiratory Rate 18 16 16 Blood Pressure 124/43 L 119/41 L Pulse Oximetry 96 91 91 12/07/19 08:22 12/07/19 14:00 Temperature 36.4 C Pulse Rate 68 87 Respiratory Rate 17 Blood Pressure 106/48 L Pulse Oximetry 100 Intake/Output Intake/Output: Intake & Output 12/04/19 12/05/19 12/06/19 12/07/19 23:59 23:59 23:59 23:59 Intake Total 760 720 720 290 Balance 760 720 720 290 Meds/Results Medications: Active Medications Generic Name Dose Route Start Last Admin Trade Name Freq PRN Reason Stop Dose Admin Aspirin 325 mg 11/27/19 09:00 12/07/19 08:22 Aspirin PO 325 mg DAILY [facility] Administration Atenolol 50 mg 11/27/19 09:00 12/07/19 08:22 Tenormin PO 50 mg DAILY [facility] Administration Atorvastatin Calcium 80 mg 11/26/19 21:00 12/06/19 20:10 Lipitor PO 80 mg HS [facility] Administration Calcium Carbonate 200 mg 11/27/19 00:17 Tums PO Q6H PRN Indigestion Cyclosporine 1 drop 11/26/19 21:00 12/07/19 08:23 Restasis EACH EYE 1 drop Q12HR [facility] Administration Dextrose 12.5 gm 11/26/19 14:58 Dextrose 50% Syringe IV PUSH PRN PRN Hypoglycemia Protocol Docusate Sodium 100 mg 11/26/19 17:00 12/07/19 08:22 Colace Capsule PO 100 mg BID [facility] Administration Fluticasone Propionate 1 spray 11/27/19 09:00 12/07/19 08:23 Flonase 0.05% Nasal [place] NASAL 1 spray DAILY [facility] Administration Glucagon 1 mg 11/26/19 14:58 Glucagon For Inj IM PRN PRN Hypoglycemia Protocol Glucose 15 gm 11/26/19 14:58 Glutose 15 PO PRN PRN Hypoglycemia Protocol Heparin Sodium (Porcine) 5,000 units 11/27/19 22:00 12/07/19 13:15 Heparin Sodium SUB-Q 5,000 units Q8HR [facility] Administration Hydrochlorothiazide 25 mg 11/27/19 09:00 12/07/19 08:23 Hydrochlorothiazide PO 25 mg DAILY [facility] Administration Dextrose 1,000 mls @ 100 mls/hr 11/26/19 14:58 Dextrose 5% 1,000 Ml IVPB PRN PRN Hypoglycemia Protocol Loperamide HCl 2 mg 11/27/19 17:20 Loperamide Hcl PO Q4H PRN Diarrhea Loratadine 10 mg 11/27/19 09:00 12/07/19 08:23 Claritin PO 10 mg DAILY [facility] Administration Losartan Potassium 50 mg 11/27/19 09:00 12/07/19 08:23 Cozaar PO 50 mg DAILY [facility] Administration Metformin HCl
[2019-12-07 17:10] LABS: Glucose Point of Care 119 (65-105)
[2019-12-07] MEDS: ATORVASTATIN 40 MG TABLET 80 MG PO (20:31)
[2019-12-07 22:00] VITALS: BP 116/60; PULSE 79; RESP 18; TEMP 36.6; O2SAT 94
[2019-12-07 23:50] LABS: Glucose Point of Care 126 (65-105)
[2019-12-08] MEDS: HEPARIN SODIUM 5,000 UNITS/ML VIAL 5000 UNITS SUB-Q ×3 (05:56→20:34)
[2019-12-08 06:00] VITALS: BP 121/52; PULSE 87; RESP 16; TEMP 36.8; O2SAT 98
[2019-12-08 08:00] VITALS: PULSE 85; RESP 19; O2SAT 100
[2019-12-08] MEDS: metFORMIN HCL 500 MG TABLET PO ×2 (08:44→17:36)
[2019-12-08 08:45] VITALS: PULSE 87
[2019-12-08] MEDS: ASPIRIN 325 MG TABLET PO (08:45)
[2019-12-08] MEDS: THERAPEUTIC MULTIVITAMINS/MINERALS TAB (*BKC) 1 TABLET PO (08:45)
[2019-12-08] MEDS: hydroCHLOROthiazide 25 MG TABLET PO (08:45)
[2019-12-08] MEDS: LOSARTAN POTASSIUM 50 MG TABLET PO (08:45)
[2019-12-08] MEDS: atenoloL 50 MG TABLET PO (08:45)
[2019-12-08] MEDS: LORATADINE 10 MG TABLET PO (08:46)
[2019-12-08] MEDS: DOCUSATE SODIUM 100 MG CAPSULE PO ×2 (08:46→17:36)
[2019-12-08] MEDS: FLUTICASONE PROPIONATE 0.05% NA SPR 16 GM BTL (*BKC) 1 SPRAY NASAL (08:46)
--- NOTE | 2019-12-08 13:30 | WPDNEURORHBP ---
Subjective Date/time seen: 12/08/19 13:30 Interval history: this 79-year-old woman is here because of left hemispheric stroke with aphasia and right-sided hemiparesis. She is not eating well because of the dietary restriction and is her daughter is telling me that if he can't give a regular diet she might it better she also have mentioned to me on at least 2 occasions to give her some dietary supplements the literature of wedge given to me which has shared with her pharmacist and the pharmacist tried to call the company home ex them however response was that they will knock talk to our pharmacist and they will only talk to the person who has the account with them i.e. looked into their literature is quite long and prolonged and mentions some antioxidants which this examiner is not quite familiar with it. In any event I will share this information with the daughter at the end of my note The patient is stable denies any headache as best I can tell nausea vomiting chest pain shortness of breath fever chills or sore throat Review of Systems Review of Systems: All systems reviewed & are unremarkable except as noted in HPI and below Functional Status Transfers Ability Ability to Transfer In/Out of Chair: Total Assistance X 2 Exam Const: General: comfortable and no acute distress HENMT: General nose exam: Normal nares present Mouth: Yes moist mucous membranes Eyes: General: appearance normal, both eyes and all related structures Neck: Neck: supple and no JVD Resp: Effort & Inspection: normal respiratory effort Auscultation: clear to auscultation bilaterally Cardio: Rate: regular rate Rhythm: regular rhythm GI: GI Palp: Yes Soft to palpation Auscultation: normal bowel sounds Skin: General skin exam: normal color and no rashes or lesions noted Neuro: Other: patient is stable with limitation of the aphasia and rather significant right-sided hemiparesis she is making progress however very slow and I doubt that she will be able to go in a situation where somebody at home can take care of her Extrem: General: normal to inspection Psych: Other: psychological issues to be stable and she has been usually smiling and inappropriate laughter related to left-sided all rather left hemispheric stroke Objective Data Vital Signs Vital Signs: Vital Signs - 24 hr 12/07/19 14:00 12/07/19 22:00 12/08/19 06:00 Temperature 36.4 C 36.6 C 36.8 C Pulse Rate 87 79 87 Respiratory Rate 17 18 16 Blood Pressure 106/48 L 116/60 121/52 L Pulse Oximetry 100 94 98 12/08/19 08:45 Temperature Pulse Rate 87 Respiratory Rate Blood Pressure Pulse Oximetry Intake/Output Intake/Output: Intake & Output 12/05/19 12/06/19 12/07/19 12/08/19 23:59 23:59 23:59 23:59 Intake Total 720 720 650 340 Balance 720 720 650 340 Meds/Results Medications: Active Medications Generic Name Dose Route Start Last Admin Trade Name Freq PRN Reason Stop Dose Admin Aspirin 325 mg 11/27/19 09:00 12/08/19 08:45 Aspirin PO 325 mg DAILY [facility] Administration Atenolol 50 mg 11/27/19 09:00 12/08/19 08:45 Tenormin PO 50 mg DAILY [facility] Administration Atorvastatin Calcium 80 mg 11/26/19 21:00 12/07/19 20:31 Lipitor PO 80 mg HS [facility] Administration Calcium Carbonate 200 mg 11/27/19 00:17 Tums PO Q6H PRN Indigestion Cyclosporine 1 drop 11/26/19 21:00 12/08/19 08:46 Restasis EACH EYE 1 drop Q12HR [facility] Administration Dextrose 12.5 gm 11/26/19 14:58 Dextrose 50% Syringe IV PUSH PRN PRN Hypoglycemia Protocol Docusate Sodium 100 mg 11/26/19 17:00 12/08/19 08:46 Colace Capsule PO 100 mg BID [facility] Administration Fluticasone Propionate 1 spray 11/27/19 09:00 12/08/19 08:46 Flonase 0.05% Nasal [place] NASAL 1 spray DAILY [facility] Administration Glucagon 1 mg 11/26/19 14:58 Glucagon For Inj IM PRN PRN Hypoglycemia Protocol Glucose 15 gm 11/26/19 14:58
[2019-12-08 14:00] VITALS: BP 119/61; PULSE 85; RESP 19; TEMP 36.2; O2SAT 100
[2019-12-08 17:13] LABS: Glucose Point of Care 103 (65-105)
[2019-12-08] MEDS: ATORVASTATIN 40 MG TABLET 80 MG PO (20:34)
[2019-12-08 22:00] VITALS: BP 106/40; PULSE 86; RESP 16; TEMP 36.4; O2SAT 97
[2019-12-09] MEDS: HEPARIN SODIUM 5,000 UNITS/ML VIAL 5000 UNITS SUB-Q ×3 (05:21→20:25)
[2019-12-09 05:57] LABS: Glucose Point of Care 127 (65-105)
[2019-12-09 06:00] VITALS: BP 117/40; PULSE 86; RESP 18; TEMP 36.7; O2SAT 98
[2019-12-09 09:07] VITALS: PULSE 86
[2019-12-09] MEDS: DOCUSATE SODIUM 100 MG CAPSULE PO ×2 (09:07→17:58)
[2019-12-09] MEDS: metFORMIN HCL 500 MG TABLET PO ×2 (09:07→17:58)
[2019-12-09] MEDS: ASPIRIN 325 MG TABLET PO (09:07)
[2019-12-09] MEDS: atenoloL 50 MG TABLET PO (09:07)
[2019-12-09] MEDS: FLUTICASONE PROPIONATE 0.05% NA SPR 16 GM BTL (*BKC) 1 SPRAY NASAL (09:08)
[2019-12-09] MEDS: hydroCHLOROthiazide 25 MG TABLET PO (09:08)
[2019-12-09] MEDS: LORATADINE 10 MG TABLET PO (09:08)
[2019-12-09] MEDS: THERAPEUTIC MULTIVITAMINS/MINERALS TAB (*BKC) 1 TABLET PO (09:08)
[2019-12-09] MEDS: LOSARTAN POTASSIUM 50 MG TABLET PO (09:08)
[2019-12-09 14:00] VITALS: BP 78/50; PULSE 90; RESP 18; TEMP 36.4; O2SAT 98
--- NOTE | 2019-12-09 15:02 | PC.NURSE ---
Blood pressure running low with 78/50 manually and pulse 90. Spoke with Dr. Browning and instructed to hold her blood pressure meds tomorrow and continue to monitor her for rest of day.
[2019-12-09 17:02] LABS: Glucose Point of Care 114 (65-105)
[2019-12-09] MEDS: ATORVASTATIN 40 MG TABLET 80 MG PO (20:25)
[2019-12-09 22:00] VITALS: BP 108/41; PULSE 61; RESP 18; TEMP 37.1; O2SAT 94
[2019-12-10 05:58] LABS: Glucose Point of Care 133 (65-105)
[2019-12-10 06:00] VITALS: BP 102/46; PULSE 89; RESP 18; TEMP 37; O2SAT 97
[2019-12-10] MEDS: HEPARIN SODIUM 5,000 UNITS/ML VIAL 5000 UNITS SUB-Q ×3 (08:43→21:17)
[2019-12-10] MEDS: ASPIRIN 325 MG TABLET PO (08:45)
[2019-12-10] MEDS: THERAPEUTIC MULTIVITAMINS/MINERALS TAB (*BKC) 1 TABLET PO (08:45)
[2019-12-10] MEDS: FLUTICASONE PROPIONATE 0.05% NA SPR 16 GM BTL (*BKC) 1 SPRAY NASAL (08:46)
[2019-12-10] MEDS: DOCUSATE SODIUM 100 MG CAPSULE PO ×2 (08:46→17:18)
[2019-12-10] MEDS: metFORMIN HCL 500 MG TABLET PO ×2 (08:46→17:18)
[2019-12-10] MEDS: LORATADINE 10 MG TABLET PO (08:47)
--- NOTE | 2019-12-10 13:12 | WPDNEURORHBP ---
Subjective Date/time seen: 12/10/19 13:12 Interval history: this 79-year-old is here after having a left hemispheric stroke which aphasia and abnormal affect with laughing and giggly most of the time and significant right-sided moderately severe hemiparesis she is making some progress but not quite as good as 1 would like to she still needs assistance in most of the activities of daily living does not seem to be any distress and as best I can tell denies any headache nausea vomiting chest pain shortness of breath fever chills sore throat Review of Systems Review of Systems: All systems reviewed & are unremarkable except as noted in HPI and below Functional Status Ambulation Ability Ambulation Assistive Devices: Parallel Bars Transfers Ability Ability to Transfer In/Out of Chair: Total Assistance X 2 Exam Const: General: comfortable and no acute distress HENMT: General nose exam: Normal nares present Mouth: Yes moist mucous membranes Eyes: General: appearance normal, both eyes and all related structures Neck: Neck: supple and no JVD Resp: Effort & Inspection: normal respiratory effort Auscultation: clear to auscultation bilaterally Cardio: Rate: regular rate Rhythm: regular rhythm GI: GI Palp: Yes Soft to palpation Auscultation: normal bowel sounds Skin: General skin exam: normal color and no rashes or lesions noted Neuro: Other: patient is awake and alert partially follows the command is speech is getting better however the moderately severe right-sided hemiparesis is lagging behind is still needing lot of assistance in the activities of daily living Extrem: General: normal to inspection Psych: Other: patient is aphasic and has relatively abnormal of fact because of laughter and giggling Objective Data Vital Signs Vital Signs: Vital Signs - 24 hr 12/09/19 14:00 12/09/19 22:00 12/10/19 06:00 Temperature 36.4 C L 37.1 C 37.0 C Pulse Rate 90 61 89 Respiratory Rate 18 18 18 Blood Pressure 78/50 L 108/41 L 102/46 L Pulse Oximetry 98 94 97 Intake/Output Intake/Output: Intake & Output 12/07/19 12/08/19 12/09/19 12/10/19 23:59 23:59 23:59 23:59 Intake Total 650 580 560 240 Balance 650 580 560 240 Meds/Results Medications: Active Medications Generic Name Dose Route Start Last Admin Trade Name Freq PRN Reason Stop Dose Admin Aspirin 325 mg 11/27/19 09:00 12/10/19 08:45 Aspirin PO 325 mg DAILY [facility] Administration Atenolol 50 mg 11/27/19 09:00 12/09/19 09:07 Tenormin PO 50 mg DAILY [facility] Administration Atorvastatin Calcium 80 mg 11/26/19 21:00 12/09/19 20:25 Lipitor PO 80 mg HS [facility] Administration Calcium Carbonate 200 mg 11/27/19 00:17 Tums PO Q6H PRN Indigestion Cyclosporine 1 drop 11/26/19 21:00 12/10/19 08:46 Restasis EACH EYE 1 drop Q12HR [facility] Administration Dextrose 12.5 gm 11/26/19 14:58 Dextrose 50% Syringe IV PUSH PRN PRN Hypoglycemia Protocol Docusate Sodium 100 mg 11/26/19 17:00 12/10/19 08:46 Colace Capsule PO 100 mg BID [facility] Administration Fluticasone Propionate 1 spray 11/27/19 09:00 12/10/19 08:46 Flonase 0.05% Nasal [place] NASAL 1 spray DAILY [facility] Administration Glucagon 1 mg 11/26/19 14:58 Glucagon For Inj IM PRN PRN Hypoglycemia Protocol Glucose 15 gm 11/26/19 14:58 Glutose 15 PO PRN PRN Hypoglycemia Protocol Heparin Sodium (Porcine) 5,000 units 11/27/19 22:00 12/10/19 08:43 Heparin Sodium SUB-Q 5,000 units Q8HR [facility] Administration Hydrochlorothiazide 25 mg 11/27/19 09:00 12/09/19 09:08 Hydrochlorothiazide PO 25 mg DAILY [facility] Administration Dextrose 1,000 mls @ 100 mls/hr 11/26/19 14:58 Dextrose 5% 1,000 Ml IVPB PRN PRN Hypoglycemia Protocol Loperamide HCl 2 mg 11/27/19 17:20 Loperamide Hcl PO Q4H PRN Diarrhea Loratadine 10 mg 11/27/19 09:00 12/10/19 08:47
[2019-12-10 14:00] VITALS: BP 120/43; PULSE 98; RESP 16; TEMP 36.8; O2SAT 97
--- NOTE | 2019-12-10 14:12 | PCDIET ---
Nutrition Follow-Up Complete: Nutrition Diagnosis: Inadequate oral intake related to CVA as evidenced by poor po intake reported. Nutrition Goal: Adequate intake of at least 50% of meals/supplements Goal in progress. Patient with fluctuating intakes on diabetic, soft and bite size diet. Patient reports liking the Ensure Compact and would be agreeable to larger supplement (8oz vs. 4oz). Recommend change from Ensure Compact (220kcal, 9g protein) BID to Ensure Enlive (350kcal, 20g protein) BID until intakes consistently improved. Last recorded weight is 65.3 kg which is down from last review. Bowel Motility: BM x 1 on 12/09/19. Labs Reviewed: Glu (133) Meds Noted: Colace, Hydrochlorothiazide, Glucophage, MVI/minerals Additional Notes: No documented skin breakdown. Will continue to monitor with same goal. Nutrition Monitoring and Evaluation: Follow up every 5 days.
[2019-12-10 17:15] LABS: Glucose Point of Care 138 (65-105)
[2019-12-10 20:00] VITALS: BP 131/47; PULSE 112; RESP 18; TEMP 36.9; O2SAT 98
[2019-12-10] MEDS: ATORVASTATIN 40 MG TABLET 80 MG PO (21:16)
[2019-12-10 22:01] LABS: Glucose Point of Care 157 (65-105)
[2019-12-11 05:05] VITALS: BP 118/51; PULSE 110; RESP 16; TEMP 36.6; O2SAT 94
[2019-12-11] MEDS: HEPARIN SODIUM 5,000 UNITS/ML VIAL 5000 UNITS SUB-Q ×3 (05:21→20:07)
[2019-12-11 05:43] LABS: Basophils Percent Auto 0.3 % (0.2-1.2); Eosinophils Absolute Auto 0.1 K/mm3 (0-0.3); Eosinophils Percent Auto 1.3 % (0-4.4); Hematocrit 39.2 % (37.0-47.0); Immature Granulocyte Absolute 0.04 K/mm3 (0.00-0.031); Immature Granulocyte Percent A 0.4 % (0-0.5); Lymphocytes Percent Auto 23.1 % (18.3-44.2); Mean Corpuscular HGB Conc 33.2 g/dl (32-36); Mean Corpuscular Hemoglobin 30.9 pg (26-34); Mean Corpuscular Volume 93.1 fl (80-100); Mean Platelet Volume 11.5 fl (7.4-10.4); Monocytes Absolute Auto 0.6 K/mm3 (0.1-0.6); Monocytes Percent Auto 6.1 % (2.6-8.5); Neutrophils Absolute Auto 6.2 K/mm3 (1.3-6.7); Neutrophils Percent Auto 68.8 % (45.5-73.1); Platelet Count Result 335 k/mm3 (150-375); Red Blood Count 4.21 M/mm3 (4.2-5.4); White Blood Count 9.1 K/mm3 (4.5-10.0)
[2019-12-11 05:50] LABS: Blood Urea Nitrogen 33 mg/dL (7-17); Carbon Dioxide 24 mmol/L (22-30); Chloride 98 mmol/L (98-107); Estimated CRCL calculation 43 ml/min; Estimated Glomerular Filt Rate > 60; Glucose 137 mg/dL (65-105); Sodium 131 mmol/L (137-145)
[2019-12-11 06:50] LABS: Glucose Point of Care 131 (65-105)
[2019-12-11 09:10] VITALS: PULSE 102; RESP 16; O2SAT 94
[2019-12-11] MEDS: metFORMIN HCL 500 MG TABLET PO ×2 (09:27→16:53)
[2019-12-11] MEDS: ASPIRIN 325 MG TABLET PO (09:27)
[2019-12-11] MEDS: DOCUSATE SODIUM 100 MG CAPSULE PO ×2 (09:28→16:53)
[2019-12-11] MEDS: THERAPEUTIC MULTIVITAMINS/MINERALS TAB (*BKC) 1 TABLET PO (09:28)
[2019-12-11] MEDS: LORATADINE 10 MG TABLET PO (09:28)
[2019-12-11] MEDS: FLUTICASONE PROPIONATE 0.05% NA SPR 16 GM BTL (*BKC) 1 SPRAY NASAL (09:32)
[2019-12-11 14:00] VITALS: BP 146/51; PULSE 90; RESP 18; TEMP 36.7; O2SAT 96
[2019-12-11 16:48] LABS: Glucose Point of Care 140 (65-105)
--- NOTE | 2019-12-11 17:04 | WPDNEURORHBP ---
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 and moderately severe right-sided hemiparesis she is stable denies any new complaints particularly denies any headache nausea vomiting chest pain shortness of breath fever chills sore throat The main issue remains the significant right-sided hemiparesis hampering all the activities of daily living non of course along with the aphasia which has improved to a certain extent Review of Systems Review of Systems: All systems reviewed & are unremarkable except as noted in HPI and below Functional Status Ambulation Ability Ability to Ambulate 10 Feet: Maximum Assistance X 1 Ambulation Assistive Devices: Parallel Bars Transfers Ability Ability to Transfer In/Out of Chair: Maximum Assistance X 1 Exam Const: General: comfortable and no acute distress HENMT: General nose exam: Normal nares present Mouth: Yes moist mucous membranes Eyes: General: appearance normal, both eyes and all related structures Neck: Neck: supple and no JVD Resp: Effort & Inspection: normal respiratory effort Auscultation: clear to auscultation bilaterally Cardio: Rate: regular rate Rhythm: regular rhythm GI: GI Palp: Yes Soft to palpation Auscultation: normal bowel sounds Skin: General skin exam: normal color and no rashes or lesions noted Neuro: Other: patient is awake and alert only partially oriented to self and possibly hospital aphasia is improving moderately severe hemiparesis is lagging behind quite a bit needing still significant assistance is all the activities of daily living Extrem: General: normal to inspection Psych: Other: patient is pleasant never anxious or showing any sign of bed affect her mood of course it is related to her unusual mood and behavior from the frontal lobe stroke and aphasia Objective Data Vital Signs Vital Signs: Vital Signs - 24 hr 12/10/19 20:00 12/11/19 05:05 12/11/19 09:10 Temperature 36.9 C 36.6 C Pulse Rate 112 H 110 H 102 H Respiratory Rate 18 16 16 Blood Pressure 131/47 L 118/51 L Pulse Oximetry 98 94 94 12/11/19 14:00 Temperature 36.7 C Pulse Rate 90 Respiratory Rate 18 Blood Pressure 146/51 H Pulse Oximetry 96 Intake/Output Intake/Output: Intake & Output 12/08/19 12/09/19 12/10/19 12/11/19 23:59 23:59 23:59 23:59 Intake Total 580 560 840 240 Balance 580 560 840 240 Meds/Results Medications: Active Medications Generic Name Dose Route Start Last Admin Trade Name Freq PRN Reason Stop Dose Admin Aspirin 325 mg 11/27/19 09:00 12/11/19 09:27 Aspirin PO 325 mg DAILY [facility] Administration Atenolol 50 mg 11/27/19 09:00 12/09/19 09:07 Tenormin PO 50 mg DAILY [facility] Administration Atorvastatin Calcium 80 mg 11/26/19 21:00 12/10/19 21:16 Lipitor PO 80 mg HS [facility] Administration Calcium Carbonate 200 mg 11/27/19 00:17 Tums PO Q6H PRN Indigestion Cyclosporine 1 drop 11/26/19 21:00 12/11/19 09:28 Restasis EACH EYE 1 drop Q12HR [facility] Administration Dextrose 12.5 gm 11/26/19 14:58 Dextrose 50% Syringe IV PUSH PRN PRN Hypoglycemia Protocol Docusate Sodium 100 mg 11/26/19 17:00 12/11/19 16:53 Colace Capsule PO 100 mg BID [facility] Administration Fluticasone Propionate 1 spray 11/27/19 09:00 12/11/19 09:32 Flonase 0.05% Nasal [place] NASAL 1 spray DAILY [facility] Administration Glucagon 1 mg 11/26/19 14:58 Glucagon For Inj IM PRN PRN Hypoglycemia Protocol Glucose 15 gm 11/26/19 14:58 Glutose 15 PO PRN PRN Hypoglycemia Protocol Heparin Sodium (Porcine) 5,000 units 11/27/19 22:00 12/11/19 14:57 Heparin Sodium SUB-Q 5,000 units Q8HR [facility] Administration Hydrochlorothiazide 25 mg 11/27/19 09:00 12/09/19 09:08 Hydrochlorothiazide PO 25 mg DAILY [facility] Administration Dextros
[2019-12-11 20:00] VITALS: BP 163/57; PULSE 92; RESP 16; TEMP 36.8; O2SAT 100
[2019-12-11] MEDS: ATORVASTATIN 40 MG TABLET 80 MG PO (20:05)
[2019-12-11] MEDS: TOLNAFTATE 1% POWDER 45 GM BTL 1 APPLIC TOPICAL (20:08)
[2019-12-12] MEDS: TOLNAFTATE 1% POWDER 45 GM BTL 1 APPLIC TOPICAL ×6 (00:34→20:41)
[2019-12-12 05:31] VITALS: BP 134/53; PULSE 100; RESP 16; TEMP 37; O2SAT 96
[2019-12-12] MEDS: HEPARIN SODIUM 5,000 UNITS/ML VIAL 5000 UNITS SUB-Q ×3 (05:57→20:40)
[2019-12-12 06:37] LABS: Glucose Point of Care 121 (65-105)
[2019-12-12] MEDS: THERAPEUTIC MULTIVITAMINS/MINERALS TAB (*BKC) 1 TABLET PO (09:09)
[2019-12-12] MEDS: FLUTICASONE PROPIONATE 0.05% NA SPR 16 GM BTL (*BKC) 1 SPRAY NASAL (09:09)
[2019-12-12] MEDS: ASPIRIN 325 MG TABLET PO (09:09)
[2019-12-12] MEDS: metFORMIN HCL 500 MG TABLET PO ×2 (09:09→17:22)
[2019-12-12 09:10] VITALS: PULSE 96; RESP 16; O2SAT 96
[2019-12-12] MEDS: LORATADINE 10 MG TABLET PO (09:10)
[2019-12-12] MEDS: DOCUSATE SODIUM 100 MG CAPSULE PO ×2 (09:10→17:22)
[2019-12-12 14:00] VITALS: BP 142/69; PULSE 109; RESP 18; TEMP 36.4; O2SAT 97
[2019-12-12 17:32] LABS: Glucose Point of Care 143 (65-105)
--- NOTE | 2019-12-12 18:13 | WPDNEURORHBP ---
Subjective Date/time seen: 12/12/19 18:13 Interval history: this 79-year-old woman is here because of having had left hemispheric stroke and right-sided hemiplegia her aphasia is slowly improving however the right-sided hemiplegia is slow in progress she most likely will end up being in an extended care facility as I do not believe that the and/or the daughter will be able to give her the care which she would need at the time of the discharge As best I can see the patient is not any distress is smiling as usual follows all commands fairly well denies any headache nausea vomiting chest pain shortness of breath fever chills sore throat Review of Systems Review of Systems: All systems reviewed & are unremarkable except as noted in HPI and below Functional Status Ambulation Ability Ability to Ambulate 10 Feet: Moderate Assistance X 1 Ambulation Assistive Devices: Railings Transfers Ability Ability to Transfer In/Out of Chair: Maximum Assistance X 1 Exam Const: General: comfortable and no acute distress HENMT: General nose exam: Normal nares present Mouth: Yes moist mucous membranes Eyes: General: appearance normal, both eyes and all related structures Neck: Neck: supple and no JVD Resp: Effort & Inspection: normal respiratory effort Auscultation: clear to auscultation bilaterally Cardio: Rate: regular rate Rhythm: regular rhythm GI: GI Palp: Yes Soft to palpation Auscultation: normal bowel sounds Skin: General skin exam: normal color and no rashes or lesions noted Neuro: Other: patient is awake and alert trying to follow some commands speech is improving however right-sided hemiplegia has little improvement Extrem: General: normal to inspection Psych: Other: aphasia precludes her psychological assessment in detail Objective Data Vital Signs Vital Signs: Vital Signs - 24 hr 12/11/19 20:00 12/12/19 05:31 12/12/19 09:10 Temperature 36.8 C 37.0 C Pulse Rate 92 100 96 Respiratory Rate 16 16 16 Blood Pressure 163/57 H 134/53 L Pulse Oximetry 100 96 96 12/12/19 14:00 Temperature 36.4 C Pulse Rate 109 H Respiratory Rate 18 Blood Pressure 142/69 H Pulse Oximetry 97 Intake/Output Intake/Output: Intake & Output 12/09/19 12/10/19 12/11/19 12/12/19 23:59 23:59 23:59 23:59 Intake Total 560 840 360 240 Balance 560 840 360 240 Meds/Results Medications: Active Medications Generic Name Dose Route Start Last Admin Trade Name Freq PRN Reason Stop Dose Admin Aspirin 325 mg 11/27/19 09:00 12/12/19 09:09 Aspirin PO 325 mg DAILY [facility] Administration Atenolol 50 mg 11/27/19 09:00 12/09/19 09:07 Tenormin PO 50 mg DAILY [facility] Administration Atorvastatin Calcium 80 mg 11/26/19 21:00 12/11/19 20:05 Lipitor PO 80 mg HS [facility] Administration Calcium Carbonate 200 mg 11/27/19 00:17 Tums PO Q6H PRN Indigestion Cyclosporine 1 drop 11/26/19 21:00 12/12/19 09:10 Restasis EACH EYE 1 drop Q12HR [facility] Administration Dextrose 12.5 gm 11/26/19 14:58 Dextrose 50% Syringe IV PUSH PRN PRN Hypoglycemia Protocol Docusate Sodium 100 mg 11/26/19 17:00 12/12/19 17:22 Colace Capsule PO 100 mg BID [facility] Administration Fluticasone Propionate 1 spray 11/27/19 09:00 12/12/19 09:09 Flonase 0.05% Nasal [place] NASAL 1 spray DAILY [facility] Administration Glucagon 1 mg 11/26/19 14:58 Glucagon For Inj IM PRN PRN Hypoglycemia Protocol Glucose 15 gm 11/26/19 14:58 Glutose 15 PO PRN PRN Hypoglycemia Protocol Heparin Sodium (Porcine) 5,000 units 11/27/19 22:00 12/12/19 13:09 Heparin Sodium SUB-Q 5,000 units Q8HR [facility] Administration Hydrochlorothiazide 25 mg 11/27/19 09:00 12/09/19 09:08 Hydrochlorothiazide PO 25 mg DAILY [facility] Administration Dextrose 1,000 mls @ 100 mls/hr 11/26/19 14:58 Dextrose 5% 1,000 Ml IVPB PRN PRN Hypoglycemia Protocol Lop
[2019-12-12] MEDS: ATORVASTATIN 40 MG TABLET 80 MG PO (20:42)
[2019-12-12 22:00] VITALS: BP 146/73; PULSE 106; RESP 16; TEMP 36.8; O2SAT 98
[2019-12-13] MEDS: TOLNAFTATE 1% POWDER 45 GM BTL 1 APPLIC TOPICAL ×6 (00:53→21:31)
[2019-12-13] MEDS: HEPARIN SODIUM 5,000 UNITS/ML VIAL 5000 UNITS SUB-Q ×3 (05:38→21:29)
[2019-12-13 06:00] VITALS: BP 154/57; PULSE 108; RESP 20; TEMP 37; O2SAT 99
[2019-12-13 07:04] LABS: Glucose Point of Care 139 (65-105)
[2019-12-13] MEDS: THERAPEUTIC MULTIVITAMINS/MINERALS TAB (*BKC) 1 TABLET PO (08:57)
[2019-12-13] MEDS: LORATADINE 10 MG TABLET PO (08:57)
[2019-12-13] MEDS: DOCUSATE SODIUM 100 MG CAPSULE PO ×2 (08:57→17:53)
[2019-12-13] MEDS: ASPIRIN 325 MG TABLET PO (08:57)
[2019-12-13] MEDS: metFORMIN HCL 500 MG TABLET PO ×2 (08:57→17:53)
[2019-12-13] MEDS: FLUTICASONE PROPIONATE 0.05% NA SPR 16 GM BTL (*BKC) 1 SPRAY NASAL (08:57)
[2019-12-13 14:00] VITALS: BP 136/62; PULSE 128; RESP 20; TEMP 36.6; O2SAT 98
[2019-12-13 17:09] LABS: Glucose Point of Care 126 (65-105)
[2019-12-13] MEDS: ATORVASTATIN 40 MG TABLET 80 MG PO (21:28)
[2019-12-13 22:00] VITALS: BP 154/71; PULSE 113; RESP 20; TEMP 37.2; O2SAT 97
[2019-12-14] MEDS: TOLNAFTATE 1% POWDER 45 GM BTL 1 APPLIC TOPICAL ×6 (00:27→20:08)
[2019-12-14] MEDS: HEPARIN SODIUM 5,000 UNITS/ML VIAL 5000 UNITS SUB-Q ×3 (05:39→20:06)
[2019-12-14 06:00] VITALS: BP 126/64; PULSE 110; RESP 20; TEMP 36.6; O2SAT 99
[2019-12-14 06:46] LABS: Glucose Point of Care 118 (65-105)
[2019-12-14 08:00] VITALS: PULSE 110; RESP 18; O2SAT 97
[2019-12-14] MEDS: THERAPEUTIC MULTIVITAMINS/MINERALS TAB (*BKC) 1 TABLET PO (08:25)
[2019-12-14] MEDS: LORATADINE 10 MG TABLET PO (08:25)
[2019-12-14] MEDS: ASPIRIN 325 MG TABLET PO (08:25)
[2019-12-14] MEDS: FLUTICASONE PROPIONATE 0.05% NA SPR 16 GM BTL (*BKC) 1 SPRAY NASAL (08:25)
[2019-12-14] MEDS: metFORMIN HCL 500 MG TABLET PO ×2 (08:25→16:08)
[2019-12-14] MEDS: DOCUSATE SODIUM 100 MG CAPSULE PO ×2 (08:25→16:08)
[2019-12-14 14:00] VITALS: BP 132/56; PULSE 119; RESP 18; TEMP 37.1; O2SAT 97
--- NOTE | 2019-12-14 14:53 | WPDNEURORHBP ---
Subjective Date/time seen: 12/14/19 14:53 Interval history: this 79-year-old was transmitter to us from [facility] with devastating left hemispheric stroke which has left her with the aphasia and right-sided hemiparesis her aphasia is improving right-sided is improving however not to a point where the patient can be taken care of in a home surrounding and she probably will be going to residential facility she does not seem to be any distress denies any headache nausea vomiting chest pain shortness of breath fever chills sore throat Review of Systems Review of Systems: All systems reviewed & are unremarkable except as noted in HPI and below Functional Status Ambulation Ability Ability to Ambulate 10 Feet: Moderate Assistance X 1 Ambulation Assistive Devices: Hand Hold and Railings Transfers Ability Ability to Transfer In/Out of Chair: Maximum Assistance X 1 Exam Const: General: comfortable and no acute distress HENMT: General nose exam: Normal nares present Mouth: Yes moist mucous membranes Eyes: General: appearance normal, both eyes and all related structures Neck: Neck: supple and no JVD Resp: Effort & Inspection: normal respiratory effort Auscultation: clear to auscultation bilaterally Cardio: Rate: regular rate Rhythm: regular rhythm GI: GI Palp: Yes Soft to palpation Auscultation: normal bowel sounds Skin: General skin exam: normal color and no rashes or lesions noted Neuro: Other: patient's aphasia is improving however the most of the motor deficit is still there L beat some improvement in the right upper extremity movements Extrem: General: normal to inspection Psych: Other: is still aphasic and has inappropriate affect laughter and giggling and smiling which is obviously due to the frontal lobe involvement Objective Data Vital Signs Vital Signs: Vital Signs - 24 hr 12/13/19 22:00 12/14/19 06:00 12/14/19 14:00 Temperature 37.2 C 36.6 C 37.1 C Pulse Rate 113 H 110 H 119 H Respiratory Rate 20 20 18 Blood Pressure 154/71 H 126/64 132/56 L Pulse Oximetry 97 99 97 Intake/Output Intake/Output: Intake & Output 12/11/19 12/12/19 12/13/19 12/14/19 23:59 23:59 23:59 23:59 Intake Total 360 360 840 460 Balance 360 360 840 460 Meds/Results Medications: Active Medications Generic Name Dose Route Start Last Admin Trade Name Freq PRN Reason Stop Dose Admin Aspirin 325 mg 11/27/19 09:00 12/14/19 08:25 Aspirin PO 325 mg DAILY [facility] Administration Atenolol 50 mg 11/27/19 09:00 12/09/19 09:07 Tenormin PO 50 mg DAILY [facility] Administration Atorvastatin Calcium 80 mg 11/26/19 21:00 12/13/19 21:28 Lipitor PO 80 mg HS [facility] Administration Calcium Carbonate 200 mg 11/27/19 00:17 Tums PO Q6H PRN Indigestion Cyclosporine 1 drop 11/26/19 21:00 12/14/19 08:25 Restasis EACH EYE 1 drop Q12HR [facility] Administration Dextrose 12.5 gm 11/26/19 14:58 Dextrose 50% Syringe IV PUSH PRN PRN Hypoglycemia Protocol Docusate Sodium 100 mg 11/26/19 17:00 12/14/19 08:25 Colace Capsule PO 100 mg BID [facility] Administration Fluticasone Propionate 1 spray 11/27/19 09:00 12/14/19 08:25 Flonase 0.05% Nasal [place] NASAL 1 spray DAILY [facility] Administration Glucagon 1 mg 11/26/19 14:58 Glucagon For Inj IM PRN PRN Hypoglycemia Protocol Glucose 15 gm 11/26/19 14:58 Glutose 15 PO PRN PRN Hypoglycemia Protocol Heparin Sodium (Porcine) 5,000 units 11/27/19 22:00 12/14/19 05:39 Heparin Sodium SUB-Q 5,000 units Q8HR [facility] Administration Hydrochlorothiazide 25 mg 11/27/19 09:00 12/09/19 09:08 Hydrochlorothiazide PO 25 mg DAILY [facility] Administration Dextrose 1,000 mls @ 100 mls/hr 11/26/19 14:58 Dextrose 5% 1,000 Ml IVPB PRN PRN Hypoglycemia Protocol Loperamide HCl 2 mg 11/27/19 17:20 Loperamide Hcl PO Q4H PRN Diarrhea
[2019-12-14 17:52] LABS: Glucose Point of Care 158 (65-105)
[2019-12-14] MEDS: ATORVASTATIN 40 MG TABLET 80 MG PO (20:07)
[2019-12-14 22:00] VITALS: BP 148/77; PULSE 113; RESP 18; TEMP 36.1; O2SAT 97
[2019-12-15] MEDS: TOLNAFTATE 1% POWDER 45 GM BTL 1 APPLIC TOPICAL ×4 (00:20→16:52)
[2019-12-15] MEDS: HEPARIN SODIUM 5,000 UNITS/ML VIAL 5000 UNITS SUB-Q ×3 (04:48→20:51)
[2019-12-15 06:00] VITALS: BP 143/58; PULSE 112; RESP 18; TEMP 36.8; O2SAT 98
[2019-12-15 07:02] LABS: Glucose Point of Care 109 (65-105)
[2019-12-15] MEDS: LORATADINE 10 MG TABLET PO (08:42)
[2019-12-15] MEDS: metFORMIN HCL 500 MG TABLET PO ×2 (08:42→16:50)
[2019-12-15] MEDS: FLUTICASONE PROPIONATE 0.05% NA SPR 16 GM BTL (*BKC) 1 SPRAY NASAL (08:42)
[2019-12-15] MEDS: ASPIRIN 325 MG TABLET PO (08:42)
[2019-12-15] MEDS: DOCUSATE SODIUM 100 MG CAPSULE PO ×2 (08:42→16:50)
[2019-12-15] MEDS: THERAPEUTIC MULTIVITAMINS/MINERALS TAB (*BKC) 1 TABLET PO (08:43)
--- NOTE | 2019-12-15 10:37 | PCDIET ---
Nutrition Follow-Up Complete: Nutrition Diagnosis: Inadequate oral intake related to CVA as evidenced by poor po intake reported. Nutrition Goal: Intake of at least 50% of meals/supplements Goal met. Intakes averages 63% of meals since 12/11/19 on diabetic diet with Ensure Enlive BID. Per nursing notes, patient only taking some of Enlive supplement; however, patient reports taking consistently. Recommend continuing present diet/supplements for now. Last recorded weight is 65.3 kg. Recommend obtaining new weight. Bowel Motility: +BM today. Labs Reviewed: Glu (109) Meds Noted: Colace, Hydrochlorothiazide, Glucophage, MVI Additional Notes: No documented skin breakdown. Will continue to monitor with same goal. Nutrition Monitoring and Evaluation: Follow up every 5 days.
[2019-12-15 14:00] VITALS: BP 132/55; PULSE 132; RESP 19; TEMP 36.7; O2SAT 96
--- NOTE | 2019-12-15 14:27 | ECG_ITS ---
Measurements Intervals [place] Rate: 128 P: 37 CA: 123 QRS: 76 QRSD: 100 T: 51 QT: 325 QTc: 476 Interpretive Statements SINUS TACHYCARDIA INCOMPLETE RIGHT BUNDLE BRANCH BLOCK ABNORMAL ECG Electronically Signed On 12-15-2019 14:52:01 CDT by Barron Frazier D.O.
--- NOTE | 2019-12-15 14:55 | WPDNEURORHBP ---
Subjective Date/time seen: 12/15/19 14:55 Interval history: patient is speech and language functions have a and so is the right-sided hemiparesis however not quite there yet today she has tachycardia up to 132 which has been slowly going higher without any evidence of or complaints of chest pain shortness of breath headache nausea vomiting fever chills sore throat it is sinus tachycardia I am not really sure why she doing that Have requested cardiology consult to look into it if anything we need to do from the cardiac standpoint Review of Systems Review of Systems: All systems reviewed & are unremarkable except as noted in HPI and below Functional Status Ambulation Ability Ability to Ambulate 10 Feet: Minimum Assistance X 2 Ambulation Assistive Devices: Hand Hold Transfers Ability Ability to Transfer In/Out of Chair: Maximum Assistance X 1 Exam Const: General: comfortable and no acute distress HENMT: General nose exam: Normal nares present Mouth: Yes moist mucous membranes Eyes: General: appearance normal, both eyes and all related structures Neck: Neck: supple and no JVD Resp: Effort & Inspection: normal respiratory effort Auscultation: clear to auscultation bilaterally Cardio: Rate: regular rate Rhythm: regular rhythm Other: tachycardia up to 132 per minute without any clinical evidence of chest pain or shortness of breath GI: GI Palp: Yes Soft to palpation Auscultation: normal bowel sounds Skin: General skin exam: normal color and no rashes or lesions noted Neuro: Other: patient's speech and language functions have improved significantly and the right-sided hemiparesis is slowly improving also Extrem: General: normal to inspection Psych: Other: the aphasia is improving Objective Data Vital Signs Vital Signs: Vital Signs - 24 hr 12/14/19 22:00 12/15/19 06:00 Temperature 36.1 C L 36.8 C Pulse Rate 113 H 112 H Respiratory Rate 18 18 Blood Pressure 148/77 H 143/58 H Pulse Oximetry 97 98 Intake/Output Intake/Output: Intake & Output 12/12/19 12/13/19 12/14/19 12/15/19 23:59 23:59 23:59 23:59 Intake Total 360 840 750 540 Balance 360 840 750 540 Meds/Results Medications: Active Medications Generic Name Dose Route Start Last Admin Trade Name Freq PRN Reason Stop Dose Admin Aspirin 325 mg 11/27/19 09:00 12/15/19 08:42 Aspirin PO 325 mg DAILY [facility] Administration Atenolol 50 mg 11/27/19 09:00 12/09/19 09:07 Tenormin PO 50 mg DAILY [facility] Administration Atorvastatin Calcium 80 mg 11/26/19 21:00 12/14/19 20:07 Lipitor PO 80 mg HS [facility] Administration Calcium Carbonate 200 mg 11/27/19 00:17 Tums PO Q6H PRN Indigestion Cyclosporine 1 drop 11/26/19 21:00 12/15/19 08:42 Restasis EACH EYE 1 drop Q12HR [facility] Administration Dextrose 12.5 gm 11/26/19 14:58 Dextrose 50% Syringe IV PUSH PRN PRN Hypoglycemia Protocol Docusate Sodium 100 mg 11/26/19 17:00 12/15/19 08:42 Colace Capsule PO 100 mg BID [facility] Administration Fluticasone Propionate 1 spray 11/27/19 09:00 12/15/19 08:42 Flonase 0.05% Nasal [place] NASAL 1 spray DAILY [facility] Administration Glucagon 1 mg 11/26/19 14:58 Glucagon For Inj IM PRN PRN Hypoglycemia Protocol Glucose 15 gm 11/26/19 14:58 Glutose 15 PO PRN PRN Hypoglycemia Protocol Heparin Sodium (Porcine) 5,000 units 11/27/19 22:00 12/15/19 04:48 Heparin Sodium SUB-Q 5,000 units Q8HR [facility] Administration Hydrochlorothiazide 25 mg 11/27/19 09:00 12/09/19 09:08 Hydrochlorothiazide PO 25 mg DAILY [facility] Administration Dextrose 1,000 mls @ 100 mls/hr 11/26/19 14:58 Dextrose 5% 1,000 Ml IVPB PRN PRN Hypoglycemia Protocol Loperamide HCl 2 mg 11/27/19 17:20 Loperamide Hcl PO Q4H PRN Diarrhea Loratadine 10 mg 11/27/19 09:00 12/15/19 08:42 Claritin PO 10 mg DAILY [facility] Administratio
--- NOTE | 2019-12-15 14:59 | PC.NURSE ---
patient sitting at desk. tech took vitals and noted pulse rate 132. this automobile service writer updated and rechecked apical pulse. apically pulse still noted 132. Dr Browning updated and received order for EKG. EKG called and updated on order. EKG obtained and Dr Browning shown EKG. DR Browning requested Cardiology consult for tachycardia. Elis Pressley with cardiology called and updated on consult. Consult was entered under Dr Buck per Elis. Patient has had no complaints of chest pain or SOB at this time. Pt does have some medications on hold and Elis was updated via phone while discussing consult about this. will continue to monitor.
[2019-12-15 17:24] LABS: Glucose Point of Care 124 (65-105)
[2019-12-15] MEDS: ATORVASTATIN 40 MG TABLET 80 MG PO (20:51)
[2019-12-15 22:00] VITALS: BP 151/73; PULSE 99; RESP 16; TEMP 36.8; O2SAT 99
[2019-12-16] MEDS: TOLNAFTATE 1% POWDER 45 GM BTL 1 APPLIC TOPICAL ×6 (00:44→20:15)
[2019-12-16] MEDS: HEPARIN SODIUM 5,000 UNITS/ML VIAL 5000 UNITS SUB-Q ×3 (05:46→20:13)
[2019-12-16 06:00] VITALS: BP 153/72; PULSE 100; RESP 16; TEMP 36.6; O2SAT 95
[2019-12-16 07:37] LABS: Glucose Point of Care 121 (65-105)
[2019-12-16] MEDS: metFORMIN HCL 500 MG TABLET PO ×2 (09:43→17:18)
[2019-12-16] MEDS: ASPIRIN 325 MG TABLET PO (09:43)
[2019-12-16] MEDS: DOCUSATE SODIUM 100 MG CAPSULE PO ×2 (09:44→17:18)
[2019-12-16] MEDS: LORATADINE 10 MG TABLET PO (09:44)
[2019-12-16] MEDS: THERAPEUTIC MULTIVITAMINS/MINERALS TAB (*BKC) 1 TABLET PO (09:44)
[2019-12-16] MEDS: FLUTICASONE PROPIONATE 0.05% NA SPR 16 GM BTL (*BKC) 1 SPRAY NASAL (09:45)
--- NOTE | 2019-12-16 11:01 | WPDNEURORHBP ---
Subjective Date/time seen: 12/16/19 11:01 Interval history: This is an 79 year old woman with left hemispheric stroke with aphasia and right-sided hemiparesis her aphasia has significantly improved she is eating fairly well and in fact her right-sided hemiparesis is also improved she is going to be transferred to a swing bed at the other facility the medications were reviewed the cardiology consult was appreciated about sinus tachycardia and he had made some changes which is very much appreciated The patient is not any discomfort her vital signs are fairly decent she denies any headache nausea vomiting chest pain shortness of breath fever chills or sore throat Review of Systems Review of Systems: All systems reviewed & are unremarkable except as noted in HPI and below Functional Status Ambulation Ability Ability to Ambulate 10 Feet: Moderate Assistance X 2 Ambulation Assistive Devices: Hand Hold Transfers Ability Ability to Transfer In/Out of Chair: Maximum Assistance X 1 Exam Const: General: comfortable and no acute distress HENMT: General nose exam: Normal nares present Mouth: Yes moist mucous membranes Eyes: General: appearance normal, both eyes and all related structures Neck: Neck: supple and no JVD Resp: Effort & Inspection: normal respiratory effort Auscultation: clear to auscultation bilaterally Cardio: Rate: regular rate Rhythm: regular rhythm Other: the tachycardia is much better in the past 24 hours the highest it has been 104 rest of the time is about 194 or 19 GI: GI Palp: Yes Soft to palpation Auscultation: normal bowel sounds Skin: General skin exam: normal color and no rashes or lesions noted Neuro: Other: the patient is awake and alert partially oriented she is able to talk in fluent sentences at times and at time DIS fluent follows fairly decent commands and has improving right-sided hemiparesis Extrem: General: normal to inspection Psych: Mental Status: mental status grossly normal Other: due to constraint of aphasia it is difficult to assess overall mental status examination but she does not seem to be psychotic belligerent sad or anxious her off affect I would described as normal Objective Data Vital Signs Vital Signs: Vital Signs - 24 hr 12/16/19 12:35 12/16/19 14:00 12/16/19 20:14 Temperature 36.6 C Pulse Rate 98 104 H 94 Respiratory Rate 16 Blood Pressure 121/54 L Pulse Oximetry 99 12/16/19 21:38 12/17/19 06:00 12/17/19 07:56 Temperature 37.6 C H 36.6 C Pulse Rate 86 100 104 H Respiratory Rate 18 18 Blood Pressure 139/65 144/66 H Pulse Oximetry 99 97 Intake/Output Intake/Output: Intake & Output 12/14/19 12/15/19 12/16/19 12/17/19 23:59 23:59 23:59 23:59 Intake Total 750 880 840 360 Balance 750 880 840 360 Meds/Results Medications: Active Medications Generic Name Dose Route Start Last Admin Trade Name Freq PRN Reason Stop Dose Admin Acetaminophen 650 mg 12/16/19 15:13 12/17/19 08:27 Tylenol Tablet PO 650 mg Q4H PRN Administration Mild Pain (1-3) or Fever Aspirin 325 mg 11/27/19 09:00 12/17/19 07:55 Aspirin PO 325 mg DAILY WALLACE Administration Atorvastatin Calcium 80 mg 11/26/19 21:00 12/16/19 20:13 Lipitor PO 80 mg HS WALLACE Administration Calcium Carbonate 200 mg 11/27/19 00:17 Tums PO Q6H PRN Indigestion Cyclosporine 1 drop 11/26/19 21:00 12/17/19 07:56 Restasis EACH EYE 1 drop Q12HR WALLACE Administration Dextrose 12.5 gm 11/26/19 14:58 Dextrose 50% Syringe IV PUSH PRN PRN Hypoglycemia Protocol Docusate Sodium 100 mg 11/26/19 17:00 12/17/19 08:29 Colace Capsule PO 100 mg BID WALLACE Administration Fluticasone Propionate 1 spray 11/27/19 09:00 12/17/19 07:58 Flonase 0.05% Nasal [place] NASAL 1 spray DAILY WALLACE Administration Glucagon 1 mg 11/26/19 14:58 Glucagon For Inj IM PRN PRN Hypoglycemia Protocol Glucose 15 gm
[2019-12-16] MEDS: LOSARTAN POTASSIUM 50 MG TABLET PO (11:04)
--- NOTE | 2019-12-16 11:05 | PM.CNCAR ---
Assessment and Plan Assessment and plan (1) Hemiparesis of right dominant side due to cerebrovascular disease: Code(s): I67.9 - Cerebrovascular disease, unspecified; G81.91 - Hemiplegia, unspecified affecting right dominant side Status: Acute Assessment and Plan: Management per primary service. Continue aspirin and statin therapy. Goal LDL less than 70. Continue rehabilitation. (2) Tachycardia: Code(s): R00.0 - Tachycardia, unspecified Status: Acute Assessment and Plan: Sinus tachycardia confirmed on 12 EKG, asymptomatic. Secondary to withdrawal of beta-rod therapy secondary to hypotension several days ago. No evidence or document history of AFib/flutter. May resume beta-rod therapy but changed to metoprolol 25 mg twice daily. Discontinue atenolol. No further recommendations provided patient tolerates medical therapy well. We will sign off unless we may be of any further assistance. Please do not hesitate to contact us with any additional questions or concerns. (3) Diabetes mellitus: Code(s): E11.9 - Type 2 diabetes mellitus without complications Status: Acute Assessment and Plan: Management per primary service. (4) Hypertension: Code(s): I10 - Essential (primary) hypertension Status: Acute Assessment and Plan: Resume antihypertensives per primary service with the exceptions as noted above. May hold hydrochlorothiazide and less blood pressure requires additional control after resuming losartan 50 mg daily. BP control to avoid symptomatic hypotension. History of Present Illness History of Present Illness Consult date/time: Date of service: 12/16/19 11:05 This is a cardiology consultation at the request of Dr. Browning for our opinion regarding sinus tachycardia. Requesting physician: Martínez Browning MD Consult reason: Other (Sinus tachycardia) Reason For Visit: CVA Narrative: 79-year-old female with a history of hypertension, dyslipidemia, diabetes mellitus who suffered a fall November 19, 2019 hitting her head without loss of consciousness with subsequent notation of right arm and leg weakness and was unable to get up. She was then taken to [facility] [place] where [place] CT of the head did not reveal acute stroke, however, given her stroke assessment she was given tPA and transferred to [facility] in [facility]. Patient was noted to have aphasia, confusion with ongoing weakness. MRI performed there revealed infarction of the posterior left frontal lobe and left LEONIDES A3 segment. Patient has normal renal function and after stabilization was then transferred to [facility] [place]. On December 08, she was noted to be in a been hypotensive is low systolic blood pressures in the 70s for which her antihypertensives were held including atenolol 50 mg daily. Subsequently sinus tachycardia was noted up to 130 beats per minute a generally low 100s. Twelve lead EKG was consistent with sinus tachycardia and patient has no prior known history of atrial fibrillation or atrial flutter. We have been asked to see this patient for recommendations on management of her sinus tachycardia. Atenolol has yet to be resumed although her losartan was ordered to be given today as her blood pressure has improved with systolic blood pressures in the 150s. Patient has no complaints of shortness of breath, chest pain or palpitations. She denies dizziness or recent falls. She has no other complaints. Review of Systems Review of Systems: All systems reviewed & are unremarkable except as noted in HPI and below Constitutional: Constitutional: Reports as per HPI, Reports no additional constitutional complaints and Reports weakness Eyes: Eyes: Reports as per HPI and Reports no additional eye complaints ENT: Reports system reviewed and no additional complaints, except as documented and Reports as per HPI Cardiovascular: Cardiovascular: Reports
[2019-12-16 12:35] VITALS: PULSE 98
[2019-12-16] MEDS: METOPROLOL TARTRATE 25 MG TABLET PO ×2 (12:35→20:14)
[2019-12-16 14:00] VITALS: BP 121/54; PULSE 104; RESP 16; TEMP 36.6; O2SAT 99
[2019-12-16] MEDS: ACETAMINOPHEN 325 MG TABLET 650 MG PO (15:28)
[2019-12-16 16:48] LABS: Glucose Point of Care 133 (65-105)
[2019-12-16] MEDS: ATORVASTATIN 40 MG TABLET 80 MG PO (20:13)
[2019-12-16 20:14] VITALS: PULSE 94
[2019-12-16 21:38] VITALS: BP 139/65; PULSE 86; RESP 18; TEMP 37.6; O2SAT 99
[2019-12-17] MEDS: TOLNAFTATE 1% POWDER 45 GM BTL 1 APPLIC TOPICAL ×3 (04:15→07:59)
[2019-12-17] MEDS: HEPARIN SODIUM 5,000 UNITS/ML VIAL 5000 UNITS SUB-Q (05:26)
[2019-12-17 06:00] VITALS: BP 144/66; PULSE 100; RESP 18; TEMP 36.6; O2SAT 97
[2019-12-17 06:23] LABS: Glucose Point of Care 121 (65-105)
[2019-12-17] MEDS: metFORMIN HCL 500 MG TABLET PO (07:55)
[2019-12-17] MEDS: ASPIRIN 325 MG TABLET PO (07:55)
[2019-12-17 07:56] VITALS: PULSE 104
[2019-12-17] MEDS: THERAPEUTIC MULTIVITAMINS/MINERALS TAB (*BKC) 1 TABLET PO (07:56)
[2019-12-17] MEDS: METOPROLOL TARTRATE 25 MG TABLET PO (07:56)
[2019-12-17] MEDS: LOSARTAN POTASSIUM 50 MG TABLET PO (07:58)
[2019-12-17] MEDS: LORATADINE 10 MG TABLET PO (07:58)
[2019-12-17] MEDS: FLUTICASONE PROPIONATE 0.05% NA SPR 16 GM BTL (*BKC) 1 SPRAY NASAL (07:58)
[2019-12-17] MEDS: ACETAMINOPHEN 325 MG TABLET 650 MG PO (08:27)
[2019-12-17] MEDS: DOCUSATE SODIUM 100 MG CAPSULE PO (08:29)
--- NOTE | 2019-12-17 11:05 | WPDNEURORHBP ---
Subjective Date/time seen: 12/17/19 11:05 Interval history: the patient is doing well her tachycardia has almost resolved she denies any headache nausea vomiting chest pain shortness of breath and she will be ready to be discharged later today after reconciliation of the medications Review of Systems Review of Systems: All systems reviewed & are unremarkable except as noted in HPI and below Functional Status Ambulation Ability Ability to Ambulate 10 Feet: Moderate Assistance X 2 Ambulation Assistive Devices: Hand Hold Transfers Ability Ability to Transfer In/Out of Chair: Maximum Assistance X 1 Exam Const: General: comfortable and no acute distress HENMT: General nose exam: Normal nares present Mouth: Yes moist mucous membranes Eyes: General: appearance normal, both eyes and all related structures Neck: Neck: supple and no JVD Resp: Effort & Inspection: normal respiratory effort Auscultation: clear to auscultation bilaterally Cardio: Rate: regular rate Rhythm: regular rhythm Other: tachycardia has almost resolved GI: GI Palp: Yes Soft to palpation Auscultation: normal bowel sounds Skin: General skin exam: normal color and no rashes or lesions noted Neuro: Other: patient is awake and alert partially oriented at times she has fluent sentences and notes that this is [facility] and the year is 2019 right-sided hemiparesis is also improved Extrem: General: normal to inspection Psych: Mental Status: mental status grossly normal Other: with the constrained of aphasia is difficult to assess her overall mental status however she is neither sad belligerent or anxious on or hallucinating she has normal affect Objective Data Vital Signs Vital Signs: Vital Signs - 24 hr 12/16/19 12:35 12/16/19 14:00 12/16/19 20:14 Temperature 36.6 C Pulse Rate 98 104 H 94 Respiratory Rate 16 Blood Pressure 121/54 L Pulse Oximetry 99 12/16/19 21:38 12/17/19 06:00 12/17/19 07:56 Temperature 37.6 C H 36.6 C Pulse Rate 86 100 104 H Respiratory Rate 18 18 Blood Pressure 139/65 144/66 H Pulse Oximetry 99 97 Intake/Output Intake/Output: Intake & Output 12/14/19 12/15/19 12/16/19 12/17/19 23:59 23:59 23:59 23:59 Intake Total 750 880 840 360 Balance 750 880 840 360 Meds/Results Medications: Active Medications Generic Name Dose Route Start Last Admin Trade Name Freq PRN Reason Stop Dose Admin Acetaminophen 650 mg 12/16/19 15:13 12/17/19 08:27 Tylenol Tablet PO 650 mg Q4H PRN Administration Mild Pain (1-3) or Fever Aspirin 325 mg 11/27/19 09:00 12/17/19 07:55 Aspirin PO 325 mg DAILY WALLACE Administration Atorvastatin Calcium 80 mg 11/26/19 21:00 12/16/19 20:13 Lipitor PO 80 mg HS WALLACE Administration Calcium Carbonate 200 mg 11/27/19 00:17 Tums PO Q6H PRN Indigestion Cyclosporine 1 drop 11/26/19 21:00 12/17/19 07:56 Restasis EACH EYE 1 drop Q12HR WALLACE Administration Dextrose 12.5 gm 11/26/19 14:58 Dextrose 50% Syringe IV PUSH PRN PRN Hypoglycemia Protocol Docusate Sodium 100 mg 11/26/19 17:00 12/17/19 08:29 Colace Capsule PO 100 mg BID WALLACE Administration Fluticasone Propionate 1 spray 11/27/19 09:00 12/17/19 07:58 Flonase 0.05% Nasal [place] NASAL 1 spray DAILY WALLACE Administration Glucagon 1 mg 11/26/19 14:58 Glucagon For Inj IM PRN PRN Hypoglycemia Protocol Glucose 15 gm 11/26/19 14:58 Glutose 15 PO PRN PRN Hypoglycemia Protocol Heparin Sodium (Porcine) 5,000 units 11/27/19 22:00 12/17/19 05:26 Heparin Sodium SUB-Q 5,000 units Q8HR WALLACE Administration Hydrochlorothiazide 25 mg 11/27/19 09:00 12/09/19 09:08 Hydrochlorothiazide PO 25 mg DAILY WALLACE Administration Dextrose 1,000 mls @ 100 mls/hr 11/26/19 14:58 Dextrose 5% 1,000 Ml IVPB PRN PRN Hypoglycemia Protocol Loperamide HCl 2 mg 11/27/19 17
--- NOTE | 2019-12-22 10:46 | PM.DS ---
DS: Admitting Diagnosis Admitting Diagnosis Admitting Diagnosis: Cerebral infarction, unspecified DS: Discharge Diagnosis Discharge Diagnosis (1) Stroke: Code(s): I63.9 - Cerebral infarction, unspecified Status: Acute (2) Hemiparesis of right dominant side due to cerebrovascular disease: Code(s): I67.9 - Cerebrovascular disease, unspecified; G81.91 - Hemiplegia, unspecified affecting right dominant side Status: Acute (3) Tachycardia: Code(s): R00.0 - Tachycardia, unspecified Status: Acute (4) Diabetic neuropathy: Code(s): E11.40 - Type 2 diabetes mellitus with diabetic neuropathy, unspecified Status: Acute (5) Diabetes mellitus: Code(s): E11.9 - Type 2 diabetes mellitus without complications Status: Acute (6) Hypertension: Code(s): I10 - Essential (primary) hypertension Status: Acute (7) Aphasia: Code(s): R47.01 - Aphasia Status: Acute DS: Summary Hospital Course Reason for hospitalization: this 79-year-old was admitted because of having had stroke which had left her with aphasia significant right-sided hemiparesis she improved however was unable to be discharged to home because she was not independent and needed supervision she was transferred to swing bed unit after multiple evaluations as they have been mentioned in the records she was consulted for tachycardia from the dairy quality assurance officer to failed is sinus tachycardia and he manipulated some of her medication and it has settled down quite a bit multiple discussions with were held with her daughter and they were appraised about the overall situations and questions were answer Hospital Course: daughters questions were answered and many occasions both by myself and the nursing staff and she understood it quite well the patient received the physical therapy speech therapy in particular occupational therapy and gait training and she was able to achieve the following independent measures eating was setup, oral hygiene setup, toileting substantial bathing partial assistance upper body dressing partial assistance lower body dressing substantial footwear substantial is rolling in bed independent sitting to lying partial assistance lying to sitting partial assistance sit to stand partial assistance chair transfers partial assistance toilet transfers partial assistance car transfers partial assistance walking 10 feet independent walking 50 feet turns unable to walking 150 feet patient unable to walking 10 feet uneven surfaces patient unable to car but set of patient was unable to 4 steps patient was unable to 12 steps patient unable to pick him about it patient was unable to wheelchair 50 feet patient was unable to wheelchair 150 feet patient was with the assistance Time Spent with Patient Time attestation: Total time spent providing and/or coordinating discharge services: Exam Const: General: comfortable and no acute distress HENMT: General nose exam: Normal nares present Mouth: Yes dry mucous membranes Eyes: General: appearance normal, both eyes and all related structures Neck: Neck: supple and no JVD Resp: Effort & Inspection: normal respiratory effort Auscultation: clear to auscultation bilaterally Cardio: Rate: regular rate Rhythm: regular rhythm GI: GI Palp: Yes Soft to palpation Auscultation: normal bowel sounds Skin: General skin exam: normal color and no rashes or lesions noted Neuro: Other: the patient's aphasia had improved quite a bit however her right-sided hemiparesis had a long way to go and that is why she was transferred to the swing bed for the continuation of therapy Extrem: General: normal to inspection Psych: Other: difficult to assess the situation because of the aphasia Discharge Plan Discharge Attending physician on discharge: Martínez Browning Consulting providers: Jared Buck Discharging Clinician: Martínez Browning Anticipated Discharge Date/Time: 12/17/19 12:
== END 2019-12-17 13:00 | DRG 57 ==
PROVIDERS: Admitting Provider Psychiatry & Neurology Neurology; PCP Family Medicine; Visit Provider Psychiatry & Neurology Neurology
DX: I69.351 Hemiplegia and hemiparesis following cerebral infarction affecting right dominant side (principal); I69.320 Aphasia following cerebral infarction; I69.398 Other sequelae of cerebral infarction; H53.40 Unspecified visual field defects; E11.42 Type 2 diabetes mellitus with diabetic polyneuropathy; E78.5 Hyperlipidemia, unspecified; I10 Essential (primary) hypertension; M47.812 Spondylosis without myelopathy or radiculopathy, cervical region; Z79.84 Long term (current) use of oral hypoglycemic drugs; R00.0 Tachycardia, unspecified
CPT/HCPCS: 36415; 80048; 80061; 83036; 85025; 92507; 92523; 93005; 97110; 97112; 97116; 97163; 97166; 97530; 97535; 97542; A9270; J1644